=== PATIENT | male | born 1955 | race Caucasian/White ===

== ENCOUNTER → 2016-08-23 | Outpatient (CLI) | payer BC ==
[2016-08-23 14:48] LABS: ABSOLUTE EOSINOPHILS # (AUTO) 0.1 10^3/uL (0.0-0.6); ABSOLUTE LYMPHOCYTES (AUTO) 0.8 10^3/uL (0.5-4.7); ABSOLUTE MONOCYTES (AUTO) 1.3 10^3/uL (0.1-1.4); ABSOLUTE NEUT (AUTO) 11.7 10^3/uL (1.7-8.2); BASOPHILS % (AUTO) 0.3 % (0-2); EOSINOPHILS % (AUTO) 0.9 % (0-6); HEMOGLOBIN 8.4 g/dL (13.5-17.0); HGB HCT DIFFERENCE -3.8; LYMPHOCYTES % (AUTO) 5.8 % (13-45); MEAN CORPUSCULAR HEMOGLOBIN 22.5 pg (27.0-33.4); MEAN CORPUSCULAR VOLUME 78 fl (80-97); MONOCYTES % (AUTO) 9.5 % (3-13); RED BLOOD COUNT 3.73 10^6/uL (4.35-5.55); RED CELL DISTRIBUTION WIDTH 20.8 % (11.5-14.0); SEGMENTED NEUTROPHILS % (AUTO) 83.5 % (42-78)
== END ==
LOC: LAB 14:24
PROVIDERS: ATTEND Radiology Radiation Oncology
DX: C49.22 Malignant neoplasm of connective and soft tissue of left lower limb, including hip (principal)
CPT/HCPCS: 36415; 85025

== ENCOUNTER → 2016-09-18 | Outpatient (CLI) | payer BC ==
[~2016-09-18] MED LIST: CEFAZOLIN INJ 1 GM VIAL ONE; FENTANYL CITRATE INJ/PF 100 MCG/2 ML AMPUL ONE; MIDAZOLAM 2 MG/2 ML INJ ONE; PROPOFOL INJ 200 MG/20 ML VIAL IV ONE
== END ==
LOC: RAD 08:08
PROVIDERS: ATTEND Internal Medicine
DX: C49.22 Malignant neoplasm of connective and soft tissue of left lower limb, including hip (principal)
CPT/HCPCS: 71260; 74177

== ENCOUNTER 2016-09-19 10:06 | Day surgery (SDC) | payer BC ==
[~2016-09-19 10:06] MED LIST changes: +BACITRACIN INJ 50,000 UNIT VIAL MC ONE; +BACITRACIN INJ 50,000 UNIT VIAL MC PRN; -CEFAZOLIN INJ 1 GM VIAL ONE; -FENTANYL CITRATE INJ/PF 100 MCG/2 ML AMPUL ONE; -MIDAZOLAM 2 MG/2 ML INJ ONE; -PROPOFOL INJ 200 MG/20 ML VIAL IV ONE
[2016-09-19 10:48] LABS: ABSOLUTE LYMPHOCYTES (AUTO) 0.4 10^3/uL (0.5-4.7); ABSOLUTE MONOCYTES (AUTO) 0.6 10^3/uL (0.1-1.4); ABSOLUTE NEUT (AUTO) 5.6 10^3/uL (1.7-8.2); BASOPHILS % (AUTO) 0.4 % (0-2); EOSINOPHILS % (AUTO) 0.5 % (0-6); HEMATOCRIT 32.4 % (37.9-51.0); HEMOGLOBIN 9.7 g/dL (13.5-17.0); HGB HCT DIFFERENCE -3.3; LYMPHOCYTES % (AUTO) 5.9 % (13-45); MEAN CORPUSCULAR HEMOGLOBIN 23.2 pg (27.0-33.4); MEAN CORPUSCULAR HGB CONC 30.1 g/dL (32.0-36.0); MEAN CORPUSCULAR VOLUME 77 fl (80-97); MONOCYTES % (AUTO) 9.3 % (3-13); RED CELL DISTRIBUTION WIDTH 22.4 % (11.5-14.0); SEGMENTED NEUTROPHILS % (AUTO) 83.9 % (42-78); WHITE BLOOD COUNT 6.7 10^3/uL (4.0-10.5)
[2016-09-19] MEDS ORDERED: OXYCODONE-ACETAMINOPHEN 5-325 MG TABLET ONE (10:49)
[2016-09-19] MEDS ORDERED: CEFAZOLIN INJ 1 GM VIAL ONE ×2 (10:50→14:01)
[2016-09-19] MEDS ORDERED: DIAZEPAM 5 MG TABLET ONE (10:50)
[2016-09-19 11:08] LABS: ANION GAP 8 (5-19); BLOOD UREA NITROGEN 14 mg/dL (7-20); CALCIUM 8.8 mg/dL (8.4-10.2); CARBON DIOXIDE 25 mmol/L (22-30); CHLORIDE 104 mmol/L (98-107); GLUCOSE 93 mg/dL (75-110); POTASSIUM 4.7 mmol/L (3.6-5.0); SODIUM 137.4 mmol/L (137-145)
[2016-09-19] MEDS ORDERED: LIDOCAINE 0.5% INJ-PF (5 MG/ML) 50 ML SDV ONE ×2 (11:21→12:49)
[2016-09-19] MEDS ORDERED: FENTANYL CITRATE INJ/PF 100 MCG/2 ML AMPUL ONE ×2 (11:43→14:01)
[2016-09-19] MEDS ORDERED: MIDAZOLAM 2 MG/2 ML INJ ONE ×2 (11:43→14:01)
[2016-09-19] MEDS ORDERED: BUPIVACAINE HCL 0.25 % INJ/PF (2.5 MG/1 ML) 30 ML VIAL ONE (12:48)
[2016-09-19] MEDS ORDERED: BACITRACIN INJ 50,000 UNIT VIAL ONE (12:49)
[2016-09-19] MEDS ORDERED: PROPOFOL INJ 200 MG/20 ML VIAL IV ONE (14:01)
[2016-09-19] MEDS ORDERED: MORPHINE SULFATE 10 MG/ML INJ IV PRN (14:25)
[2016-09-19] MEDS ORDERED: PROMETHAZINE HCL INJ 25 MG/1 ML VIAL IV PRN ×2 (14:25)
[2016-09-19] MEDS ORDERED: FENTANYL CITRATE INJ/PF 100 MCG/2 ML AMPUL IV PRN ×3 (14:25)
[2016-09-19] MEDS ORDERED: DIPHENHYDRAMINE HCL 50 MG/ML VIAL IV PRN (14:25)
[2016-09-19] MEDS ORDERED: MEPERIDINE HCL/PF INJ 25 MG/1 ML DISP.SYRIN IV PRN (14:25)
--- NOTE | 2016-09-19 15:08 | PDOC DISCHARGE SUMMARY ---
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 #3 claustrophobia. Date of Surgery: 09/19/16 Discharge Date: 09/19/16 Condition: Fair Treatment or Instructions: #1 activities within moderation encouraged. #2 follow up in my office by appointment in about 1 week. Call for appointment. #3 the wounds covered clean and dry until office visit. #4 hold off on school/work until evaluation in office. #5 may shower in 48 hours, keep operated area as dry as possible. #6 discharge from ambulatory when ASU criteria met. #7 medications per medication reconciliation sheet. #8 Percocet by prescription.. Also may have one Percocet up to every 2 hours when necessary for pain greater than 4 out of 10 while in the ASU Prescriptions: Oxycodone HCl/Acetaminophen [Percocet 5-325 mg Tablet] 1 tab PO ASDIR PRN #15 tab PRN Reason: Discharge Diet: As Tolerated Respiratory Treatments at Home: Deep Breathing/Coughing Discharge Activity: Activity As Tolerated Report the Following to Your Physician Immediately: Shortness of Breath, Fever over 101 Degrees
--- NOTE | 2016-09-19 15:10 | Operative Report ---
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 #3 claustrophobia. 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 #3 claustrophobia. OPERATION: #1 ultrasound evaluation of right internal jugular vein. #2 insertion of Port-A-Cath via real-time access in right internal jugular vein. # 3 angiogram and interpretation. SURGEON: CELIA DRAKE LAG SCREWER: none ANESTHESIA: LMAC TISSUE REMOVED OR ALTERED: Not applicable. COMPLICATIONS: None ESTIMATED BLOOD LOSS: 10 mL. INTRAOPERATIVE FINDINGS: Of a satisfactory right internal jugular vein about 2 cm in diameter. Satisfactory to Port-A-Cath. Port-A-Cath inserted. Tip of Port-A-Cath in upper right atrium. Easy flow of contrast through the right atrium, ventricle and pulmonary outflow tract documented. Easy egress of blood and ingress of heparinized solution. PROCEDURE: After obtaining informed consent, the patient was taken to the [operating room] and positioned supine. The [right] neck and chest were prepared with chlorhexidine and draped out with sterile linen. After the " universal timeout ", in which it was verified that the patient continued to receive antibiotic, the procedure commenced. A steriley sheathed ultrasound probe was used to evaluate the [right] internal jugular vein. Local anesthesia was infiltrated adjacent to the probe. Access into the [right] internal jugular vein was obtained using a micropuncture needle, followed by micropuncture wire and then a micropuncture catheter. This was followed by introduction of a 0.035 guidewire the tip of which was placed down into the inferior vena cava . The port sites was marked , locally anesthetized and incision made. Dissection now proceeded to the deep subcutaneous subcutaneous tissues so that a pocket for the port was made. Meticulous hemostasis was secured and the catheter was tunneled between the 2 incisions. Proximally, the catheter was now positioned using a peel-away sheath. Distally the catheter was tailored to an appropriate length and then mated to the port using the contained fixating device. The port was now placed in the pocket and the catheter optimally positioned. The port was accessed with a Ortiz needle and an angiogram done under digital subtraction. The findings as dictated. With adequate and satisfactory positioning, both lumens of the chamber were irrigated with heparinized solution. The wounds were now closed using interrupted 3-0 PDS to the subcutaneous tissues and a continuous subcuticular suture of 4-0 Monocryl to the skin. These are reinforced with Steri-Strips over benzoin and then dressings applied. Copies of the dictated operative report for Dr. Celia Vu MD.
[2016-09-19 16:48] VITALS: BP 103/67
== END 2016-09-19 16:49 | disposition home or self-care (01) ==
LOC: CCL 10:06
PROVIDERS: ATTEND Surgery
PROC: 05HM33Z Insertion of Infusion Device into Right Internal Jugular Vein, Percutaneous Approach (ICD-10-PCS; principal; 2016-09-19 13:30)
DX: C49.22 Malignant neoplasm of connective and soft tissue of left lower limb, including hip (principal); C78.00 Secondary malignant neoplasm of unspecified lung; F40.240 Claustrophobia; Z87.891 Personal history of nicotine dependence; Z79.899 Other long term (current) drug therapy
CPT/HCPCS: 36415; 85025; 80048; 71010; 36561; C1752; C1788; Q9967; J2250; J3490 ×2; J0690; J3010; J2704; J1644; J1642; 532

== ENCOUNTER → 2016-09-21 | Outpatient (CLI) | payer BC ==
[~2016-09-21] MED LIST changes: -BACITRACIN INJ 50,000 UNIT VIAL MC ONE; -BACITRACIN INJ 50,000 UNIT VIAL MC PRN; +CEFAZOLIN SODIUM 1 GM in DEXTROSE 5%-WATER 50 ML IV PRN; +DEXTROSE 5%-1/2 NORMAL SALINE 1,000 ML IV PRN; +DIAZEPAM 5 MG TABLET PO PRN; +OXYCODONE-ACETAMINOPHEN 5-325 MG TABLET PO PRN
== END ==
LOC: RAD 09:22
PROVIDERS: ATTEND Internal Medicine
DX: C49.22 Malignant neoplasm of connective and soft tissue of left lower limb, including hip (principal)
CPT/HCPCS: 73720; 77001; A9576; J0690; 00532

== ENCOUNTER 2016-10-13 20:45 | Inpatient (IN) | payer BC ==
[2016-10-13] MEDS ORDERED: NORMAL SALINE 1000 ML 1,000 ML IV PRN ×2 (21:08→23:45)
[2016-10-13] MEDS ORDERED: NORMAL SALINE 250 ML IV PRN (21:09)
--- NOTE | 2016-10-13 21:10 | ER Document Report ---
ED Respiratory Problem - General Chief Complaint: Fever Stated Complaint: FEVER Time seen by provider: 21:09 Mode of Arrival: Ambulatory Information source: Patient, Relative TRAVEL OUTSIDE OF THE [place] IN LAST 30 DAYS: No - HPI Patient complains to provider of: Short of breath Onset: This evening Duration: Worse/persistent Quality of pain: Achy Short of Breath: Moderate Cough: Nonproductive Associated symptoms: Cough, Fever, Short of breath Similar symptoms previously: Yes Recently seen / treated by doctor: Yes Notes: Patient is a 61-year-old male with a history of sarcoma of the left leg, with lung and liver metastases who presents to the emergency room complaining of fever, generalized weakness and lethargy according to , patient is currently in chemotherapy regimen, has completed radiation treatment, also has a history of bilateral pneumothoraces, receiving a VATS procedure to the left lung, and a VATS and TALC procedure to the right lung, he has a history of transfusions previously, he had outpatient labs performed and was scheduled to have an outpatient blood transfusion in the morning, however noted that he seems to be lethargic, with a fever of 102 at home, on arrival patient is noted to be quite hypotensive, tachycardic and hypoxic - Related Data Allergies/Adverse Reactions: No Known Allergies Allergy (Verified 06/08/16 08:03) Past Medical History - General Information source: Patient, Relative - Social History Smoking Status: Never Smoker Chew tobacco use (# tins/day): No Frequency of alcohol use: None Drug Abuse: None Family History: Reviewed & Not Pertinent Patient has suicidal ideation: No Patient has homicidal ideation: No - Past Medical History Cardiac Medical History: Reports: Hx Pulmonary Embolism Denies: Hx Coronary Artery Disease, Hx Heart Attack, Hx Hypertension Pulmonary Medical History: Denies: Hx Asthma, Hx Bronchitis, Hx COPD, Hx Pneumonia Neurological Medical History: Denies: Hx Cerebrovascular Accident, Hx Seizures Renal/ Medical History: Denies: Hx Peritoneal Dialysis Musculoskeltal Medical History: Denies Hx Arthritis Past Surgical History: Reports: Hx Appendectomy, Other - Biopsy of sarcoma - Immunizations Hx Diphtheria, Pertussis, Tetanus Vaccination: No - UNSURE Review of Systems - Review of Systems Constitutional: Fever, Malaise, Weakness EENT: No symptoms reported Cardiovascular: No symptoms reported Respiratory: See HPI Gastrointestinal: No symptoms reported Genitourinary: No symptoms reported Male Genitourinary: No symptoms reported Musculoskeletal: No symptoms reported Skin: No symptoms reported Hematologic/Lymphatic: No symptoms reported Neurological/Psychological: See HPI -: Yes All other systems reviewed and negative Physical Exam - Vital signs Vitals: Temp Pulse Resp BP Pulse Ox 97.5 F 122 H 22 H 76/50 L 65 L 10/13/16 20:53 10/13/16 20:53 10/13/16 20:53 10/13/16 20:53 10/13/16 20:53 Interpretation: Hypotensive, Tachycardic, Hypoxic - General General appearance: Other - Ill-appearing In distress: Moderate - HEENT Head: Normocephalic, Atraumatic Eyes: Normal Conjunctiva: Normal Extraocular movements intact: Yes Eyelashes: Normal Pupils: PERRL Mucous membranes: Dry Pharynx: Normal Neck: Normal - Respiratory Respiratory status: Labored Chest status: Nontender Breath sounds: Nonproductive cough, Rhonchi Chest palpation: Normal - Cardiovascular Rhythm: Regular, Tachycardia - Abdominal Inspection: Normal Distension: No distension Bowel sounds: Normal Tenderness: Nontender Organomegaly: No organomegaly - Back Back: Normal - Extremities Thigh: Other - Dressing on left thigh - Neurological Orientation: Disoriented to events Alexander Coma Scale Eye Opening: Spontaneous All Coma Scale Verbal: Confused Alexander Coma Scale Motor: Obeys Commands All Coma Scale Total: 14 - Psychological Associated symptoms: Flat affect - Skin Skin Temperature: Warm Skin Moisture: Diaphoretic Skin Color: Pale Course - Re-evaluation Re-evalutation: 10/13/16 23:44 Patient was discussed with Dr. Calderon, on-call oncologist, notified of patient in the ED pending admission, she recommends against repeating patient CT scan today as he had a recent CT scan with the past month 10/14/16 03:43 Patient was discussed with the hospitalist who agrees to admit to the ICU for further evaluation and treatment is receiving a blood transfusion, IV fluids, and Levophed, patient requested to have the BiPAP mask taken off for a while to see how he does, it is now been off for approximately 15 minutes, his vital signs remained stable with a pulse ox of 98-100% a good respiratory rate and normal heart rate, blood pressure has improved as well - Vital Signs Vital signs: Temp Pulse Resp BP Pulse Ox 97.4 F 75 12 96/69 L 100 10/14/16 00:26 10/14/16 01:11 10/14/16 03:07 10/14/16 03:07 10/14/16 03:07 - Laboratory Result Diagrams: 10/13/16 22:16 10/13/16 22:16 Laboratory results interpreted by me: 10/13/16 10/13/16 10/13/16 22:16 22:16 22:16 WBC 2.2 L RBC 2.83 L Hgb 7.0 L Hct 22.8 L MCH 24.6 L MCHC 30.5 L RDW 22.4 H Band Neutrophils % 2 L Monocytes % (Manual) 23 H Abs Neuts (Manual) 1.2 L Glucose 130 H Total Protein 5.8 L Albumin 2.8 L Crossmatch See Detail - Diagnostic Test Radiology reviewed: Image reviewed, Reports reviewed - EKG Interpretation by Me EKG shows normal: Sinus rhythm Rate: Normal Rhythm: NSR - Transfer of Care Care transferred to following provider: Dr. Balderas Critical Care Note - Critical Care Note Total time excluding time spent on procedures (mins): 120 Comments: Patient arrived hypoxic, hypotensive and tachycardic, requiring BiPAP placement , close observation, multiple re-evaluations, discussion with family members and hospitalist for ICU admission Discharge - Discharge Clinical Impression: Acute respiratory failure with hypoxia, Neutropenic fever Anemia Qualifiers: Anemia type: unspecified type Qualified Code(s): D64.9 - Anemia, unspecified Pneumonia Qualifiers: Pneumonia type: due to unspecified organism Laterality: bilateral Lung location : lower lobe of lung Qualified Code(s): J18.9 - Pneumonia, unspecified organism Condition: Serious Disposition: ADMITTED INPATIENT Admitting Provider: Hospitalist Unit Admitted: ICU
[2016-10-13 22:38] LABS: HEMATOCRIT 22.8 % (37.9-51.0); HGB HCT DIFFERENCE -1.8; MEAN CORPUSCULAR HEMOGLOBIN 24.6 pg (27.0-33.4); MEAN CORPUSCULAR HGB CONC 30.5 g/dL (32.0-36.0); MEAN CORPUSCULAR VOLUME 81 fl (80-97); RED BLOOD COUNT 2.83 10^6/uL (4.35-5.55); RED CELL DISTRIBUTION WIDTH 22.4 % (11.5-14.0); WHITE BLOOD COUNT 2.2 10^3/uL (4.0-10.5)
[2016-10-13 22:50] LABS: ALANINE AMINOTRANSFERASE 47 U/L (21-72); ALBUMIN 2.8 g/dL (3.5-5.0); ALKALINE PHOSPHATASE 77 U/L (38-126); ANION GAP 8 (5-19); ASPARTATE AMINO TRANSFERASE 23 U/L (17-59); BILIRUBIN,TOTAL 0.4 mg/dL (0.2-1.3); BLOOD UREA NITROGEN 20 mg/dL (7-20); CALCIUM 8.5 mg/dL (8.4-10.2); CARBON DIOXIDE 28 mmol/L (22-30); CHLORIDE 101 mmol/L (98-107); CREATININE RESULT 0.81 mg/dL (0.52-1.25); GLUCOSE 130 mg/dL (75-110); POTASSIUM 4.4 mmol/L (3.6-5.0); SODIUM 137.3 mmol/L (137-145); TOTAL PROTEIN 5.8 g/dL (6.3-8.2)
[2016-10-13 22:54] LABS: BAND NEUTROPHILS % (MANUAL) 2 % (3-5); BASOPHILS % (MANUAL) 0 % (0-2); EOSINOPHILS % (MANUAL) 1 % (0-6); LYMPHOCYTES % (MANUAL) 23 % (13-45); NUCLEATED RED BLOOD CELLS 2 /100 WBC (0); TOTAL CELLS COUNTED 100
[2016-10-13 22:56] LABS: ANISOCYTOSIS 2+; HYPOCHROMASIA SLIGHT; POLYCHROMASIA SLIGHT; TEAR DROP CELLS SLIGHT; TOXIC GRANULATION SLIGHT
[2016-10-14] MEDS ORDERED: DEXTROSE 5%-WATER 250 ML with NOREPINEPHRINE BITARTRATE 4 MG IV PRN ×6 (01:26→07:59)
[2016-10-14] MEDS ORDERED: ENOXAPARIN SODIUM INJ 60 MG/0.6 ML DISP.SYRIN SUBCUT ONE (01:30)
[2016-10-14] MEDS ORDERED: NOREPINEPHRINE BITARTRATE INJ/PF 4 MG/4 ML SDV IV ONE ×2 (01:40→08:06)
[2016-10-14] MEDS ORDERED: AZITHROMYCIN INJ 500 MG VIAL IV ONE ×2 (01:50→07:15)
[2016-10-14] MEDS ORDERED: CEFTRIAXONE INJ 1000 MG VIAL IV ONE (01:50)
[2016-10-14] MEDS ORDERED: CEFEPIME 2 GM/D5W RTU 50 ML IV ONE (03:16)
[2016-10-14] MEDS ORDERED: VANCOMYCIN HCL INJ 1000 MG VIAL IV ONE (03:16)
[2016-10-14 04:12] LABS: PROTHROMBIN TIME 15.8 SEC (11.4-15.4)
[2016-10-14 04:19] LABS: ARTERIAL BLOOD O2 SATURATION 94.4 % (94-98)
[2016-10-14 07:10] LABS: ANION GAP 6 (5-19); BLOOD UREA NITROGEN 20 mg/dL (7-20); CALCIUM 8.5 mg/dL (8.4-10.2); CARBON DIOXIDE 27 mmol/L (22-30); CHLORIDE 101 mmol/L (98-107); CREATINE KINASE 43 U/L (55-170); CREATININE RESULT 0.52 mg/dL (0.52-1.25); GLUCOSE 134 mg/dL (75-110); POTASSIUM 4.7 mmol/L (3.6-5.0); SODIUM 134.3 mmol/L (137-145)
[2016-10-14 07:22] LABS: CREATINE KINASE MB 1.7 ng/mL (<4.55)
[2016-10-14 07:24] LABS: TROPONIN I 0.247 ng/mL
[2016-10-14 07:28] LABS: HEMATOCRIT 27.7 % (37.9-51.0); HEMOGLOBIN 8.9 g/dL (13.5-17.0); MEAN CORPUSCULAR HEMOGLOBIN 26.2 pg (27.0-33.4); MEAN CORPUSCULAR HGB CONC 32.2 g/dL (32.0-36.0); MEAN CORPUSCULAR VOLUME 81 fl (80-97); RED BLOOD COUNT 3.41 10^6/uL (4.35-5.55); RED CELL DISTRIBUTION WIDTH 20.4 % (11.5-14.0); WHITE BLOOD COUNT 3.7 10^3/uL (4.0-10.5)
[2016-10-14 07:33] LABS: BAND NEUTROPHILS % (MANUAL) 8 % (3-5); BASOPHILS % (MANUAL) 0 % (0-2); EOSINOPHILS % (MANUAL) 0 % (0-6); LYMPHOCYTES % (MANUAL) 20 % (13-45); TOTAL CELLS COUNTED 100
[2016-10-14 07:35] LABS: ANISOCYTOSIS 2+; HYPOCHROMASIA SLIGHT; OVALOCYTES SLIGHT; POIKILOCYTOSIS SLIGHT; POLYCHROMASIA SLIGHT; TEAR DROP CELLS SLIGHT
[2016-10-14 07:36] LABS: NUCLEATED RED BLOOD CELLS 8 /100 WBC (0)
[2016-10-14] MEDS ORDERED: IPRATROPIUM/ALBUTEROL 0.5-2.5 MG/3 ML AMPUL NEB PRN (07:51)
[2016-10-14] MEDS ORDERED: NORMAL SALINE 1000 ML 1,000 ML IV PRN (07:53)
[2016-10-14] MEDS ORDERED: PHARMACY COMMUNICATION ORDER MC NR (08:00)
[2016-10-14] MEDS ORDERED: VANCOMYCIN HCL 0 MG in DEXTROSE 5%-WATER 250 ML IV NR ×2 (08:00→08:15)
[2016-10-14] MEDS ORDERED: ACETAMINOPHEN 325 MG TABLET PO PRN (08:00)
[2016-10-14] MEDS ORDERED: NORMAL SALINE 1000 ML 2,000 ML IV ONE (08:35)
[2016-10-14] MEDS ORDERED: DIAZEPAM 5 MG TABLET PO ONE (08:42)
[2016-10-14] MEDS ORDERED: AZITHROMYCIN 500 MG in DEXTROSE 5%-WATER 250 ML IV SCH (10:00)
[2016-10-14] MEDS ORDERED: CEFEPIME 2 GM/D5W RTU 50 ML IV SCH (10:00)
--- NOTE | 2016-10-14 10:12 | PDOC H&P ---
History of Present Illness Admission Date/PCP: 10/14/16 03:[address] Sarah LAN Patient complains of: Short of breath, fever History of Present Illness: ROCK Chan DUARTE is a 61 year old male, with sarcoma of the left thigh, with lung and liver metastases, but no other chronic pulmonary or biliary disease, who presents to the emergency room for evaluation of above complaints. Patient has been discussed with emergency room physician who evaluated the patient. Patient describes fever to 102 at home, generalized weakness, lethargy, of approximately 24 hours duration. Mostly dry cough. However, no nausea vomiting , diarrhea or dysuria, chest or abdominal pain. chronic anemia, occasionally requiring blood transfusion. Was actually scheduled to have a blood transfusionthe morning of the , but with fever and lethargy, patient came to the emergency room for further evaluation. Hypoxic tachycardic and hypotensive upon initial arrival, and for some time thereafter. However, he has responded nicely to treatment so far, including IV antibiotics, IV fluid, 2 units of packed cells, and Levophed drip. Current blood pressure is acceptable, and patient is more alert and states he feels better. History of bilateral pneumothoraces, status post VATS procedure bilaterally, along with talc procedure to the right lung. Hospitalized on our service the through the of last July ; transferred to [facility] for a persistent air leak around right sided chest tube. History and physical and discharge summary have been reviewed. Prior to my being called, the emergency room physician did discuss the patient with Dr. Calderon, contract accountant oncologist. She agreed with need for transfusion, and will see the patient in follow-up in the hospital. Laboratory results are listed in [facility] and are reviewed. X-ray summary results are listed below, with full report(s) reviewed. . EKG reviewed. August 04 of last year. Social history/personal habits: . Has children. Unemployed. No tobacco use since May last year. No alcohol or illicit drug use. Allergies/adverse reactions NKDA. Home medications Home medications initially autopopulated into [facility] may not accurately reflect patient's true medications, dosages, and/or frequencies. Unfortunately, patient uncertain of medications/dosages/frequencies. REVIEW OF SYSTEMS: Constitutional: See history and present illness. Eyes: Wears glasses. ENT: No swallowing problems or complaints. No hearing problems or complaints. Pulmonary: See history and present illness. Cardiovascular: No current complaints, including chest pain. Gastrointestinal: No current complaints, including nausea or vomiting. Skin: No current complaints, including rashes. Hematologic: No unusual easy bruising or bleeding. Neurologic: No current complaints, including numbness or tingling. Musculoskeletal: Pain involving his left thigh, the site of the sarcoma. Biopsy last May. Chronic open wound since then, with dressing changed 3 times a day by . Patient states formal surgery for the lesion on his left thigh is awaiting resolution of his pulmonary issues. Joint pain from arthritis. Endocrine: No current complaints, including polyuria. Genitourinary: No current complaints, including dysuria. PHYSICAL EXAMINATION: 5 feet 6 inches tall. 59 kg. BMI 21 kg/m. Blood pressure 115/79. Pulse 74 and regular. 96% saturation on 3 L oxygen per nasal cannula. Respirations are 19 and unlabored. Temp 97 4. Thin somewhat chronically ill-appearing male, who appears a bit older than his stated age. Pleasant awake alert and cooperative. Appears to feel a bit under the weather, so to speak, along with mildly fatigued. Slightly anxious, but no florentino agitation. Skin is warm and dry. No grossly obvious evidence of rash in areas of skin examined. No subcutaneous nodules palpated, Other than the right upper anterior chest wall venous port site, which grossly appears unremarkable. ENT: Hearing grossly normal to normal conversation. Tongue midline on protrusion pink and slightly tacky. Eyes: No scleral icterus. Pupils equal and reactive to light at 4 mm. [place] conjunctivae. Neck is supple and nontender to gentle active range of motion and palpation. Midline trachea. No palpable thyroid nodule mass enlargement or tenderness. Lymphatic: No palpable cervical or clavicular nodes. Neck and lymphatic exams limited by patient body habitus. Psychiatric: Reasonable insight into acute and chronic medical issues. Oriented to time location and why here. Lungs: Auscultation reveals clear and equal breath sounds bilaterally. No use of accessory respiratory muscles. Cardiovascular: Heart regular rate and rhythm, without gallop murmur or rub. No carotid or abdominal aortic bruits. No ankle or pedal edema. Faintly palpable dorsalis pedis pulses. Abdomen: soft, , slightly distended nontender with positive bowel sounds. Unable to adequately evaluate abdomen for masses or organomegaly due to distention. Extremities: Feet are warm and dry. No calf tenderness to compression. No grossly obvious visual evidence of calf swelling. Gentle manipulation of lower extremities fails to reveal any obvious evidence of injury or instability to knees hips or ankles. Neurologic: Moves upper extremities grossly normally. Patellar reflexes absent. Absent Babinski. Light touch is intact at feet. Dorsiflexion and plantarflexion of feet 5 / 5 and symmetric. 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 from left thigh sarcoma Denies: Asthma, Bronchitis, Chronic Obstructive Pulmonary Disease (COPD), Pneumonia EENT Medical History: Denies: Eyes, Ears, Throat Neurological Medical History: Denies: Hemorrhagic CVA, Ischemic CVA, Seizures Endocrine Medical History: Denies: Diabetes Mellitus Type 1, Diabetes Mellitus Type 2, Hyperthyroidism, Hypothyroidism Renal/ Medical History: Reports: None Malignancy Medical History: 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 OF ANEMIA Infectious Medical History: Denies: Hepatitis B, Hepatitis C Past Surgical History Past Surgical History: Reports: Appendectomy, Other - Biopsy of sarcoma, left thigh Social History Information Source: Patient, Emergency Med Personnel, [facility] Records Lives with: Spouse/Significant other Smoking Status: Former Smoker Frequency of Alcohol Use: None Hx Recreational Drug Use: No Drugs: None Hx Prescription Drug Abuse: No - Advance Directive Resuscitation Status: Full Code Surrogate healthcare decision maker:: Family History Family History: Reviewed & Not Pertinent Parental Family History Reviewed: Yes Children Family History Reviewed: Yes Sibling(s) Family History Reviewed.: Yes Medication/Allergy Home Medications: RX: Alprazolam [Xanax] 1 mg PO Q12HP PRN 10/14/16 RX: Cranberry [Cranberry 500 mg Capsule] 500 mg PO DAILY 10/14/16 RX: Cyanocobalamin (Vitamin B-12) [Vitamin B-12 1000 mcg Tablet] 1,000 mcg PO DAILY 10/14/16 RX: Docusate Sodium [Colace 100 mg Capsule] 100 mg PO Q12 10/14/16 RX: Fentanyl [Subsys] 400 mcg ASDIR PRN 10/14/16 RX: Yenifer Root [Yenifer] 550 mg PO DAILY 10/14/16 RX: Linaclotide [Linzess 145 Mcg Capsule] 145 mcg PO [id number] 10/14/16 RX: Multivit-Min/FA/Lycopen/Lutein [Men 50 Plus Multivitamin Tab] 1 tab PO QHS 10/14/16 RX: Ondansetron HCl [Zofran 4 mg Tablet] 4 mg PO Q8 10/14/16 RX: Oxycodone HCl 20 mg PO Q4HP PRN 10/14/16 RX: Oxycodone HCl [Oxycontin] 80 mg PO Q8 10/14/16 RX: Quetiapine Fumarate [Seroquel 25 mg Tablet] 25 mg PO QHS 10/14/16 RX: Tamsulosin HCl [Flomax 0.4 mg Cap.sr] 0.4 mg PO QHS 10/14/16 Ipratropium/Albuterol Sulfate [Duoneb 3 ml Ampul] 3 ml NEB [id number] #1 packet Nebulizer [Nebulizer Machine] 1 each ASDIR PRN #1 kit 10/18/16 RX: Docusate Sodium [Colace 100 mg Capsule] 100 mg PO BID capsule 10/18/16 RX: Enoxaparin Sodium [Lovenox Inj 80 mg/0.8 ml Disp.syrin] 60 mg SQ Q12 #0 RX: Guaifenesin [Mucinex Sr 600 mg Tablet.sa] 1,200 mg PO Q12 #20 tablet.sa RX: Levofloxacin [Levaquin 750 mg Tablet] 750 mg PO DAILY #7 tablet 10/18/16 Allergies/Adverse Reactions: No Known Allergies Allergy (Verified 06/08/16 08:03) Physical Exam Vital Signs: Temp Pulse Resp BP Pulse Ox 97.8 F 75 17 101/71 93 10/14/16 08:17 10/14/16 01:11 10/14/16 08:01 10/14/16 08:01 10/14/16 08:01 Intake & Output 10/13/16 10/14/16 10/15/16 00:59 00:59 00:59 Intake Total 300 Output Total 300 Balance 0 Results Laboratory Results: 10/14/16 06:40 10/14/16 06:40 10/14/16 10/14/16 10/14/16 04:07 06:40 06:40 WBC 3.7 L RBC 3.41 L Hgb 8.9 L Hct 27.7 L MCV 81 MCH 26.2 L MCHC 32.2 RDW 20.4 H Plt Count 415 Seg Neutrophils % Not Reportable Lymphocytes % Not Reportable Monocytes % Not Reportable Eosinophils % Not Reportable Basophils % Not Reportable Absolute Neutrophils Not Reportable Absolute Lymphocytes Not Reportable Absolute Monocytes Not Reportable Absolute Eosinophils Not Reportable Absolute Basophils Not Reportable Carbonic Acid 1.27 HCO3/H2CO3 Ratio 20:1 ABG pH 7.40 ABG pCO2 42.3 ABG pO2 71.5 L ABG HCO3 25.9 ABG O2 Saturation 94.4 ABG Base Excess 1.0 FiO2 4L Sodium 134.3 L Potassium 4.7 Chloride 101 Carbon Dioxide 27 Anion Gap 6 BUN 20 Creatinine 0.52 Est GFR ( Amer) > 60 Est GFR (Non-Af Amer) > 60 Glucose 134 H Calcium 8.5 10/14/16 10/14/16 06:40 06:40 Creatine Kinase 43 L CK-MB (CK-2) 1.70 Troponin I 0.247 Impressions: Chest X-Ray 10/13/16 21:08 IMPRESSION: STABLE APPEARANCE OF LOCULATED BILATERAL PNEUMOTHORACES WITH ENLARGING PULMONARY NODULES AND RIGHT UPPER LOBE AIRSPACE DISEASE. OVERALL FINDINGS ARE CONCERNING FOR PROGRESSION OF METASTATIC DISEASE. SUPERIMPOSED PNEUMONIA CANNOT BE EXCLUDED. CORRELATE WITH FEVER/WHITE BLOOD CELL COUNT. Assessment & Plan - Diagnosis (1) Elevated troponin I level Is this a current diagnosis for this admission?: YesPlan: No outward clinical evidence of acute coronary syndrome. Likely due to underlying sepsis. Discussed with day hospitalist. (2) Septic shock Is this a current diagnosis for this admission?: YesPlan: Has responded well to treatment so far, including 2 units of packed cells, crystalloid, and Levophed drip. Levophed drip remains in place. (3) Pneumonia Qualifiers: Pneumonia type: due to unspecified organism Laterality: right Lung location: upper lobe of lung Qualified Code(s): J18.1 - Lobar pneumonia, unspecified organism Is this a current diagnosis for this admission?: YesPlan: Patient will be admitted under pneumonia protocol. Incentive spirometry twice a day. PRN DuoNeb's. Antibiotics will consist of cefepime, intravenous Zithromax, and intravenous vancomycin. Pharmacy to assist with dosing. I strongly encouraged patient to notify staff should patient feel that respiratory status is worsening. Patient is a full code. I have strongly encouraged patient not to get out of bed , , to avoid a fall with injury. Knee high SCDs for DVT prophylaxis; patient on systemic Lovenox for history of DVT and pulmonary embolus. Impression and plans were discussed with patient, who concurs. Time spent in evaluation and management of patient: 65 minutes. (4) Acute blood loss anemia Is this a current diagnosis for this admission?: YesPlan: Has been transfused 2 units of packed cells, as ordered by emergency room physician. (5) Anticoagulated Is this a current diagnosis for this admission?: YesPlan: Resume home medications as appropriate once these have been determined and reviewed. (6) History of DVT (deep vein thrombosis) Is this a current diagnosis for this admission?: Yes 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 Qualifiers: Laterality: unspecified laterality Qualified Code(s): C78.00 - Secondary malignant neoplasm of unspecified lung Is this a current diagnosis for this admission?: Yes (9) Sarcoma of left thigh Is this a current diagnosis for this admission?: YesPlan: Oncology consult. Dr. Calderon oncology is aware patient has been admitted and will see patient in follow-up. - Inpatient Certification Based on my medical assessment, after consideration of the patient's comorbidities, presenting symptoms, or acuity I expect that the services needed warrant INPATIENT care.: Yes I certify that my determination is in accordance with my understanding of Medicare's requirements for reasonable and necessary INPATIENT services [42 CFR 412.3e].: Yes Medical Necessity: Need Close Monitoring Due to Risk of Patient Decompensation, Need For Continuous Telemetry Monitoring, Need for IV Antibiotics, Risk of Diagnosis Which Will Require Inpatient Eval/Care/Monitoring Post Hospital Care: D/C or Transfer Summary
--- NOTE | 2016-10-14 10:54 | EKG REPORT ---
SEVERITY:- ABNORMAL ECG - SINUS RHYTHM NONSPECIFIC T ABNORMALITIES, ANT-LAT LEADS : Confirmed by: Javan Hand 14-Oct-2016 10:52:45
[2016-10-14] MEDS: GUAIFENESIN 600 MG TABLET.SA PO SCH ×2 (10:58→22:57)
[2016-10-14] MEDS: DOCUSATE SODIUM 100 MG CAPSULE PO SCH ×2 (10:58→18:38)
[2016-10-14] MEDS: FAMOTIDINE 20 MG TABLET PO SCH ×2 (10:59→22:57)
[2016-10-14] MEDS: OXYCODONE HCL SR 40 MG TABLET PO SCH ×2 (11:00→18:38)
[2016-10-14] MEDS: CEFEPIME 2 GM/D5W RTU 50 ML IV SCH ×2 (11:00→22:56)
[2016-10-14] MEDS: POLYETHYLENE GLYCOL 3350 POWDER 17 GM/1 PACKET PO SCH (11:00)
[2016-10-14] MEDS: ENOXAPARIN SODIUM INJ 60 MG/0.6 ML DISP.SYRIN SUBCUT SCH ×2 (11:00→22:57)
[2016-10-14] MEDS: NORMAL SALINE 1000 ML 1,000 ML IV PRN ×4 (11:01→22:58)
[2016-10-14] MEDS: LEVOFLOXACIN 750 MG/D5W RTU 750 MG/150 ML RTUPB IV SCH (12:19)
--- NOTE | 2016-10-14 14:05 | PDOC PROGRESS REPORT ---
Subjective Progress Note for:: 10/14/16 Subjective:: Patient does complain of constipation. Patient reports that he does not want to be admitted and would like to leave. Discussed with patient that he is currently on vasopressors with infection. Case discussed with oncology gift consultant Dr. Calderon. Patient denies chest pain, shortness of breath, abdominal pain, nausea, vomiting , fevers, chills, diarrhea, headache, new onset weakness. Physical Exam Vital Signs: Temp Pulse Resp BP Pulse Ox 97.7 F 75 14 92/67 L 94 10/14/16 12:24 10/14/16 01:11 10/14/16 13:01 10/14/16 13:01 10/14/16 13:01 Intake & Output 10/13/16 10/14/16 10/15/16 06:59 06:59 07:59 Output Total 500 Balance -500 Exam: General: Awake alert and oriented x3, no acute respiratory distress, acute and chronically ill-appearing HEENT: AT/NC, PERRL, EOMI, oropharynx is moist, pink, no scleral icterus, no conjunctival injection Neck: No JVD, trachea midline Chest: Rhonchi bilaterally CV: Regular rate and rhythm, normal S1 and S2, no murmur, rub, or gallop Abdomen: Soft, nontender to palpation, nondistended, minimal bowel sounds; no rebound, rigidity, or guarding Extremities: No cyanosis, clubbing or edema Neuro: Cranial nerves II through XII are grossly intact without focal deficits; awake alert and orientedx3 Psych: Flat mood and affect Results Laboratory Results: 10/14/16 12:42 Troponin I 0.183 Impressions: Chest X-Ray 10/13/16 21:08 IMPRESSION: STABLE APPEARANCE OF LOCULATED BILATERAL PNEUMOTHORACES WITH ENLARGING PULMONARY NODULES AND RIGHT UPPER LOBE AIRSPACE DISEASE. OVERALL FINDINGS ARE CONCERNING FOR PROGRESSION OF METASTATIC DISEASE. SUPERIMPOSED PNEUMONIA CANNOT BE EXCLUDED. CORRELATE WITH FEVER/WHITE BLOOD CELL COUNT. Chest CT 10/14/16 00:00 IMPRESSION: 1. 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 2. INTERVAL DEVELOPMENT OF BILATERAL PLEURAL EFFUSIONS, RIGHT GREATER THAN LEFT. 3. PATCHY PARENCHYMAL DENSITIES IN THE POSTERIOR RIGHT LOWER LOBE AND POSTERIOR RIGHT UPPER LOBE. PROBABLY DUE TO COMPRESSIVE ATELECTASIS SECONDARY TO PLEURAL EFFUSION ALTHOUGH SUPERIMPOSED PNEUMONIA NOT ENTIRELY EXCLUDED. 4. LOCULATED PNEUMOTHORACES, LEFT GREATER THAN RIGHT, UNCHANGED. Assessment & Plan - Diagnosis (1) Septic shock Is this a current diagnosis for this admission?: YesPlan: Secondary to pneumonia in a patient with ongoing chemotherapy. Currently on levothyroid. Will give patient adequate fluid resuscitation prior to continuing levophed. Maintain a map of 65. (2) Acute respiratory failure with hypoxia Is this a current diagnosis for this admission?: YesPlan: Continue patient on oxygen. He does have a history of prior pulmonary embolus. He is on Lovenox at this time for this. (3) Elevated troponin I level Is this a current diagnosis for this admission?: YesPlan: Likely secondary to septic shock and underlying illness. (4) Pneumonia Qualifiers: Pneumonia type: due to unspecified organism Laterality: right Lung location: upper lobe of lung Qualified Code(s): J18.1 - Lobar pneumonia, unspecified organism Is this a current diagnosis for this admission?: YesPlan: Currently on vancomycin, cefepime, and Levaquin. Pending sputum culture. Aggressive pulmonary toileting and nebulized treatments. (5) Constipation Qualifiers: Constipation type: drug induced constipation Qualified Code(s): K59.03 - Drug induced constipation Is this a current diagnosis for this admission?: YesPlan: Patient has not had a bowel movement for several days. He is only recently been started on linzess. Begin patient on senna Colace and miralax. (6) high-grade myxoid sarcoma Is this a current diagnosis for this admission?: YesPlan: Have consulted oncology for this. They felt this time that his current illness represents a progression of his disease in addition to pneumonia. 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
[2016-10-14] MEDS: IPRATROPIUM/ALBUTEROL 0.5-2.5 MG/3 ML AMPUL NEB SCH ×2 (14:27→21:20)
[2016-10-14] MEDS: VANCOMYCIN HCL 1,000 MG in DEXTROSE 5%-WATER 250 ML IV SCH (15:28)
[2016-10-14] MEDS: ALBUMIN HUMAN 50 ML IV SCH ×4 (15:28→21:26)
[2016-10-14] MEDS: OXYCODONE HCL IR 5 MG TABLET PO PRN ×2 (15:33→22:57)
[2016-10-14] MEDS ORDERED: TAMSULOSIN HCL 0.4 MG CAP.SR.24H PO SCH (22:00)
[2016-10-14] MEDS ORDERED: (PENDING PHARMACY ID) (Ondansetron Hcl [Zofran 4 Mg Tablet] 4 MG) PO SCH (22:00)
[2016-10-14] MEDS: ONDANSETRON 4 MG TAB.RAPDIS PO SCH (22:56)
[2016-10-14] MEDS: SENNOSIDES/DOCUSATE 8.6-50 MG 1 EACH TABLET PO SCH (22:57)
[2016-10-14] MEDS: QUETIAPINE FUMARATE 25 MG TABLET PO SCH (22:57)
[2016-10-14] MEDS: TAMSULOSIN HCL 0.4 MG CAP.SR.24H PO SCH (22:57)
[2016-10-15] MEDS: OXYCODONE HCL SR 40 MG TABLET PO SCH ×3 (03:40→22:24)
[2016-10-15] MEDS: VANCOMYCIN HCL 1,000 MG in DEXTROSE 5%-WATER 250 ML IV SCH ×2 (03:42→15:06)
[2016-10-15] MEDS: ONDANSETRON 4 MG TAB.RAPDIS PO SCH ×3 (05:44→22:28)
[2016-10-15] MEDS: NORMAL SALINE 1000 ML 1,000 ML IV PRN ×3 (05:48→16:57)
[2016-10-15 06:29] LABS: HEMATOCRIT 23.1 % (37.9-51.0); HGB HCT DIFFERENCE -0.9; MEAN CORPUSCULAR HEMOGLOBIN 25.9 pg (27.0-33.4); MEAN CORPUSCULAR HGB CONC 31.9 g/dL (32.0-36.0); MEAN CORPUSCULAR VOLUME 81 fl (80-97); RED BLOOD COUNT 2.85 10^6/uL (4.35-5.55); RED CELL DISTRIBUTION WIDTH 20.3 % (11.5-14.0)
[2016-10-15 06:30] LABS: ALANINE AMINOTRANSFERASE 37 U/L (21-72); ALBUMIN 2.4 g/dL (3.5-5.0); ALKALINE PHOSPHATASE 62 U/L (38-126); ANION GAP 6 (5-19); ASPARTATE AMINO TRANSFERASE 16 U/L (17-59); BILIRUBIN,TOTAL 0.5 mg/dL (0.2-1.3); BLOOD UREA NITROGEN 8 mg/dL (7-20); CARBON DIOXIDE 25 mmol/L (22-30); CHLORIDE 108 mmol/L (98-107); CREATININE RESULT 0.38 mg/dL (0.52-1.25); GLUCOSE 84 mg/dL (75-110); SODIUM 138.5 mmol/L (137-145); TOTAL PROTEIN 4.9 g/dL (6.3-8.2)
[2016-10-15 06:51] LABS: POTASSIUM 3.6 mmol/L (3.6-5.0)
[2016-10-15 06:52] LABS: WHITE BLOOD COUNT 2.1 10^3/uL (4.0-10.5)
[2016-10-15 06:54] LABS: HEMOGLOBIN 7.4 g/dL (13.5-17.0)
[2016-10-15] MEDS ORDERED: NORMAL SALINE 250 ML IV PRN ×4 (07:31→10:15)
[2016-10-15] MEDS: OXYCODONE HCL IR 5 MG TABLET PO PRN ×3 (08:36→22:37)
[2016-10-15] MEDS: IPRATROPIUM/ALBUTEROL 0.5-2.5 MG/3 ML AMPUL NEB SCH ×3 (08:37→20:54)
[2016-10-15] MEDS: POLYETHYLENE GLYCOL 3350 POWDER 17 GM/1 PACKET PO SCH (10:01)
[2016-10-15] MEDS: GUAIFENESIN 600 MG TABLET.SA PO SCH ×2 (10:01→22:27)
[2016-10-15] MEDS: DOCUSATE SODIUM 100 MG CAPSULE PO SCH ×2 (10:02→17:53)
[2016-10-15] MEDS: CYANOCOBALAMIN (VITAMIN B-12) 1,000 MCG TABLET PO SCH (10:02)
[2016-10-15] MEDS: FAMOTIDINE 20 MG TABLET PO SCH ×2 (10:02→22:27)
[2016-10-15] MEDS: ENOXAPARIN SODIUM INJ 60 MG/0.6 ML DISP.SYRIN SUBCUT SCH ×2 (10:03→22:24)
[2016-10-15] MEDS: ALPRAZOLAM 0.5 MG TABLET PO PRN ×2 (10:07→22:37)
[2016-10-15] MEDS ORDERED: FUROSEMIDE INJ/PF 20 MG/2 ML SDV IV ONE (10:51)
[2016-10-15] MEDS ORDERED: MINERAL OIL ENEMA 133 ML PR PRN (10:53)
[2016-10-15] MEDS ORDERED: POTASSIUM CHLORIDE 10 MEQ TABLET.SA PO ONE (11:00)
[2016-10-15] MEDS: CEFEPIME HCL 2 GM in DEXTROSE 5%-WATER 50 ML IV SCH ×2 (11:44→22:37)
[2016-10-15] MEDS: LEVOFLOXACIN 750 MG/D5W RTU 750 MG/150 ML RTUPB IV SCH (12:18)
--- NOTE | 2016-10-15 14:35 | PDOC CONSULTATION ---
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 He initially presented with LLE mass and was treated with XRT complete 07/25/16 with remarkable reduction in his mass. He unfortutely had bilateral pneumothorace and underwent VATS at [facility] and was discovered to have pulmonary mets. Dr. Smith discussed his case with Dr. Oneill at [place] who recommended Adriamycin with Lartruvo which he began without the immune therapy as they are awaiting drug assistance. He then presented to the ER with a fever, worsening CXR and hypotension, anemia. He has been transfused as we had already scheduled and started on IV ABX with Levophed being tapered. The patient is wanting to go home at present time. 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 from left thigh sarcoma Denies: Asthma, Bronchitis, Chronic Obstructive Pulmonary Disease (COPD), Pneumonia EENT Medical History: Denies: Eyes, Ears, Throat Neurological Medical History: Denies: Hemorrhagic CVA, Ischemic CVA, Seizures Endocrine Medical History: Denies: Diabetes Mellitus Type 1, Diabetes Mellitus Type 2, Hyperthyroidism, Hypothyroidism Renal/ Medical History: Reports: None Malignancy Medical History: 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 OF ANEMIA Infectious Medical History: Denies: Hepatitis B, Hepatitis C Past Surgical History Past Surgical History: Reports: Appendectomy, Other - Biopsy of sarcoma, left thigh Social History Lives with: Spouse/Significant other Smoking Status: Former Smoker Frequency of Alcohol Use: None Hx Recreational Drug Use: No Drugs: None Hx Prescription Drug Abuse: No - Advance Directive Resuscitation Status: Full Code Family History Family History: Reviewed & Not Pertinent Parental Family History Reviewed: Yes Children Family History Reviewed: Yes Sibling(s) Family History Reviewed.: Yes Medication/Allergy Home Medications: Alprazolam [Xanax] 1 mg PO Q12HP PRN 10/14/16 Cranberry [Cranberry 500 mg Capsule] 500 mg PO DAILY 10/14/16 Cyanocobalamin (Vitamin B-12) [Vitamin B-12 1000 mcg Tablet] 1,000 mcg PO DAILY 10/14/16 Docusate Sodium [Colace 100 mg Capsule] 100 mg PO Q12 10/14/16 Enoxaparin Sodium [Lovenox Inj 80 mg/0.8 ml Disp.syrin] 80 mg SQ Q12 10/14/16 Fentanyl [Subsys] 400 mcg SL ASDIR PRN 10/14/16 Yenifer Root [Yenifer] 550 mg PO DAILY 10/14/16 Linaclotide [Linzess 145 Mcg Capsule] 145 mcg PO ACBRKFST 10/14/16 Multivit-Min/FA/Lycopen/Lutein [Men 50 Plus Multivitamin Tab] 1 tab PO QHS 10/14 Ondansetron HCl [Zofran 4 mg Tablet] 4 mg PO Q8 10/14/16 Oxycodone HCl 20 mg PO Q4HP PRN 10/14/16 Oxycodone HCl [Oxycontin] 80 mg PO Q8 10/14/16 Quetiapine Fumarate [Seroquel 25 mg Tablet] 25 mg PO QHS 10/14/16 Tamsulosin HCl [Flomax 0.4 mg Cap.sr] 0.4 mg PO QHS 10/14/16 Allergies/Adverse Reactions: No Known Allergies Allergy (Verified 06/08/16 08:03) Review of Systems Constitutional: PRESENT: weakness Respiratory: PRESENT: dyspnea Hematologic/Lymphatic: PRESENT: as per HPI Physical Exam Vital Signs: Temp Pulse Resp BP Pulse Ox 97.5 F 75 15 95/65 L 93 10/14/16 18:43 10/14/16 21:20 10/14/16 23:16 10/14/16 23:16 10/14/16 23:01 Intake & Output 10/13/16 10/14/16 10/15/16 06:59 06:59 07:59 Output Total 1200 Balance -1200 General appearance: PRESENT: other - Chronically ill appearing Head exam: PRESENT: atraumatic, normocephalic Eye exam: PRESENT: EOMI, PERRLA Ear exam: PRESENT: normal external ear exam Mouth exam: PRESENT: moist, tongue midline Neck exam: PRESENT: full ROM Respiratory exam: PRESENT: decreased breath sounds, rhonchi, other - at the bases Cardiovascular exam: PRESENT: tachycardia Extremities exam: PRESENT: other - LLE with soft tissue changes in the left thigh Neurological exam: PRESENT: alert, awake, oriented to person, oriented to place , oriented to time, oriented to situation, abnormal gait, CN II-XII grossly intact Psychiatric exam: PRESENT: agitated Results Laboratory Results: 10/14/16 10/14/16 12:42 19:01 Troponin I 0.183 0.114 Impressions: Chest X-Ray 10/13/16 21:08 IMPRESSION: STABLE APPEARANCE OF LOCULATED BILATERAL PNEUMOTHORACES WITH ENLARGING PULMONARY NODULES AND RIGHT UPPER LOBE AIRSPACE DISEASE. OVERALL FINDINGS ARE CONCERNING FOR PROGRESSION OF METASTATIC DISEASE. SUPERIMPOSED PNEUMONIA CANNOT BE EXCLUDED. CORRELATE WITH FEVER/WHITE BLOOD CELL COUNT. Chest CT 10/14/16 00:00 IMPRESSION: 1. 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 2. INTERVAL DEVELOPMENT OF BILATERAL PLEURAL EFFUSIONS, RIGHT GREATER THAN LEFT. 3. PATCHY PARENCHYMAL DENSITIES IN THE POSTERIOR RIGHT LOWER LOBE AND POSTERIOR RIGHT UPPER LOBE. PROBABLY DUE TO COMPRESSIVE ATELECTASIS SECONDARY TO PLEURAL EFFUSION ALTHOUGH SUPERIMPOSED PNEUMONIA NOT ENTIRELY EXCLUDED. 4. LOCULATED PNEUMOTHORACES, LEFT GREATER THAN RIGHT, UNCHANGED. Assessment & Plan - Diagnosis (1) Neutropenic fever Plan: WBC's are better but can support with growth factors as needed (2) Pneumonia Qualifiers: Pneumonia type: due to unspecified organism Laterality: right Lung location: upper lobe of lung Qualified Code(s): J18.1 - Lobar pneumonia, unspecified organism Is this a current diagnosis for this admission?: YesPlan: BSA with follow up CT to clarify mets vs PNA or both (3) Acute pain of left lower extremity Is this a current diagnosis for this admission?: YesPlan: Resume pain control (4) Hypotension Is this a current diagnosis for this admission?: YesPlan: Secondary to anemia and possible sepsis (5) high-grade myxoid sarcoma Is this a current diagnosis for this admission?: Yes (6) Anemia Qualifiers: Anemia type: unspecified type Qualified Code(s): D64.9 - Anemia, unspecified Is this a current diagnosis for this admission?: YesPlan: Transfuse blood - Time Time Spent: Greater than 70 Minutes Critical Time spent with patient: 25-34 minutes Medications reviewed and adjusted accordingly: Yes - Inpatient Certification Medical Necessity: Need for IV Antibiotics
[2016-10-15 17:22] LABS: HEMATOCRIT 29.1 % (37.9-51.0); HGB HCT DIFFERENCE -0.3; MEAN CORPUSCULAR HEMOGLOBIN 26.8 pg (27.0-33.4); MEAN CORPUSCULAR HGB CONC 32.9 g/dL (32.0-36.0); MEAN CORPUSCULAR VOLUME 82 fl (80-97); RED BLOOD COUNT 3.58 10^6/uL (4.35-5.55); RED CELL DISTRIBUTION WIDTH 19.3 % (11.5-14.0); WHITE BLOOD COUNT 2.8 10^3/uL (4.0-10.5)
[2016-10-15 17:33] LABS: PROTHROMBIN TIME 15.6 SEC (11.4-15.4)
[2016-10-15 17:34] LABS: FIBRINOGEN 380 mg/dL (209-497); MAGNESIUM 1.6 mg/dL (1.6-2.3); PARTIAL THROMBOPLASTIN TIME 45.3 SEC (23.5-35.8)
[2016-10-15 17:43] LABS: BAND NEUTROPHILS % (MANUAL) 3 % (3-5); BASOPHILS % (MANUAL) 0 % (0-2); EOSINOPHILS % (MANUAL) 0 % (0-6); LYMPHOCYTES % (MANUAL) 10 % (13-45); NUCLEATED RED BLOOD CELLS 4 /100 WBC (0); TOTAL CELLS COUNTED 100
[2016-10-15 17:45] LABS: ANISOCYTOSIS 2+; HYPOCHROMASIA 1+; OVALOCYTES SLIGHT; PLATELET CLUMPS PRESENT; POIKILOCYTOSIS 1+; TEAR DROP CELLS SLIGHT
[2016-10-15 17:47] LABS: HEMOGLOBIN 9.6 g/dL (13.5-17.0)
[2016-10-15] MEDS: TAMSULOSIN HCL 0.4 MG CAP.SR.24H PO SCH (22:26)
[2016-10-15] MEDS: SENNOSIDES/DOCUSATE 8.6-50 MG 1 EACH TABLET PO SCH (22:26)
[2016-10-15] MEDS: QUETIAPINE FUMARATE 25 MG TABLET PO SCH (22:27)
[2016-10-16 03:18] LABS: ALANINE AMINOTRANSFERASE 39 U/L (21-72); ALBUMIN 2.2 g/dL (3.5-5.0); ALKALINE PHOSPHATASE 61 U/L (38-126); ANION GAP 6 (5-19); ASPARTATE AMINO TRANSFERASE 15 U/L (17-59); BILIRUBIN,TOTAL 0.5 mg/dL (0.2-1.3); BLOOD UREA NITROGEN 4 mg/dL (7-20); CALCIUM 7.9 mg/dL (8.4-10.2); CARBON DIOXIDE 23 mmol/L (22-30); CHLORIDE 111 mmol/L (98-107); CREATININE RESULT 0.42 mg/dL (0.52-1.25); GLUCOSE 86 mg/dL (75-110); POTASSIUM 3.5 mmol/L (3.6-5.0); SODIUM 140.1 mmol/L (137-145); TOTAL PROTEIN 4.5 g/dL (6.3-8.2)
[2016-10-16 03:32] LABS: HEMATOCRIT 28.5 % (37.9-51.0); HEMOGLOBIN 9.2 g/dL (13.5-17.0); HGB HCT DIFFERENCE -0.9; MEAN CORPUSCULAR HEMOGLOBIN 26.2 pg (27.0-33.4); MEAN CORPUSCULAR HGB CONC 32.3 g/dL (32.0-36.0); MEAN CORPUSCULAR VOLUME 81 fl (80-97); RED BLOOD COUNT 3.51 10^6/uL (4.35-5.55); RED CELL DISTRIBUTION WIDTH 19.7 % (11.5-14.0); WHITE BLOOD COUNT 2.9 10^3/uL (4.0-10.5)
[2016-10-16 03:41] LABS: BASOPHILS % (MANUAL) 1 % (0-2); EOSINOPHILS % (MANUAL) 0 % (0-6); LYMPHOCYTES % (MANUAL) 13 % (13-45); TOTAL CELLS COUNTED 100
[2016-10-16 03:42] LABS: NUCLEATED RED BLOOD CELLS 5 /100 WBC (0)
[2016-10-16 04:11] LABS: ANISOCYTOSIS 2+; BURR CELLS SLIGHT; POIKILOCYTOSIS 2+; POLYCHROMASIA SLIGHT; TOXIC GRANULATION 1+
[2016-10-16 04:12] LABS: OVALOCYTES 1+; TEAR DROP CELLS 1+
[2016-10-16 04:27] LABS: FOLATE > 20.00 ng/mL (>2.76)
[2016-10-16] MEDS: NORMAL SALINE 1000 ML 1,000 ML IV PRN (06:16)
[2016-10-16] MEDS: VANCOMYCIN HCL 1,000 MG in DEXTROSE 5%-WATER 250 ML IV SCH (06:16)
[2016-10-16] MEDS: ONDANSETRON 4 MG TAB.RAPDIS PO SCH ×3 (06:18→22:20)
[2016-10-16] MEDS: OXYCODONE HCL SR 40 MG TABLET PO SCH ×3 (06:18→22:19)
[2016-10-16] MEDS: OXYCODONE HCL IR 5 MG TABLET PO PRN ×2 (08:37→17:55)
[2016-10-16] MEDS: IPRATROPIUM/ALBUTEROL 0.5-2.5 MG/3 ML AMPUL NEB SCH ×3 (08:41→20:25)
[2016-10-16] MEDS ORDERED: POTASSIUM CHLORIDE 10 MEQ TABLET.SA PO ONE (09:30)
[2016-10-16] MEDS ORDERED: FUROSEMIDE INJ/PF 20 MG/2 ML SDV IV SCH (10:00)
[2016-10-16] MEDS ORDERED: FILGRASTIM INJ 300 MCG/1 ML VIAL SUBCUT SCH (10:00)
[2016-10-16] MEDS: POLYETHYLENE GLYCOL 3350 POWDER 17 GM/1 PACKET PO SCH (10:58)
[2016-10-16] MEDS: CEFEPIME HCL 2 GM in DEXTROSE 5%-WATER 50 ML IV SCH ×2 (10:58→22:26)
[2016-10-16] MEDS: ALPRAZOLAM 0.5 MG TABLET PO PRN (10:59)
[2016-10-16] MEDS: GUAIFENESIN 600 MG TABLET.SA PO SCH ×2 (10:59→22:18)
[2016-10-16] MEDS: FAMOTIDINE 20 MG TABLET PO SCH ×2 (10:59→22:19)
[2016-10-16] MEDS: DOCUSATE SODIUM 100 MG CAPSULE PO SCH ×2 (10:59→17:55)
[2016-10-16] MEDS: ENOXAPARIN SODIUM INJ 60 MG/0.6 ML DISP.SYRIN SUBCUT SCH ×2 (11:00→22:22)
[2016-10-16] MEDS: CYANOCOBALAMIN (VITAMIN B-12) 1,000 MCG TABLET PO SCH (11:03)
[2016-10-16] MEDS: LEVOFLOXACIN 750 MG/D5W RTU 750 MG/150 ML RTUPB IV SCH (11:04)
[2016-10-16] MEDS ORDERED: VANCOMYCIN HCL 1,000 MG in DEXTROSE 5%-WATER 250 ML IV SCH (14:00)
[2016-10-16] MEDS ORDERED: FERUMOXYTOL 510 MG in NORMAL SALINE 100 ML IV ONE (14:00)
--- NOTE | 2016-10-16 16:47 | PDOC PROGRESS REPORT ---
Subjective Progress Note for:: 10/15/16 Subjective:: Patient admits to shortness of breath. Patient's hemoglobin was back down to 7.4 today. He denies any hematemesis, hematochezia, or melena. He reports his breathing is much improved. He reports his pain is is well- controlled as he can expect to be. Patient denies chest pain, abdominal pain, nausea, vomiting, fevers, chills, diarrhea, constipation, headache, new onset weakness. Physical Exam Vital Signs: Temp Pulse Resp BP Pulse Ox 97.9 F 87 22 H 99/65 L 91 L 10/15/16 08:00 10/15/16 10:00 10/15/16 10:00 10/15/16 10:00 10/15/16 10:00 Intake & Output 10/14/16 10/15/16 10/16/16 05:59 06:59 06:59 Intake Total 0 Output Total 200 Balance -200 Weight Exam: General: Awake alert and oriented x3, no acute respiratory distress, acute and chronically ill-appearing HEENT: AT/NC, PERRL, EOMI, oropharynx is moist, pink, no scleral icterus, no conjunctival injection Neck: No JVD, trachea midline Chest: Rhonchi bilaterally, bilateral rales CV: Regular rate and rhythm, normal S1 and S2, no murmur, rub, or gallop Abdomen: Soft, nontender to palpation, nondistended, minimal bowel sounds; no rebound, rigidity, or guarding Extremities: No cyanosis, clubbing or edema Neuro: Cranial nerves II through XII are grossly intact without focal deficits; awake alert and orientedx3 Psych: Flat mood and affect Results Laboratory Results: 10/15/16 06:00 10/15/16 06:00 10/15/16 10/15/16 06:00 06:00 WBC 2.1 L D RBC 2.85 L Hgb 7.4 L Hct 23.1 L MCV 81 MCH 25.9 L MCHC 31.9 L RDW 20.3 H Plt Count 322 Sodium 138.5 Potassium 3.6 D Chloride 108 H Carbon Dioxide 25 Anion Gap 6 BUN 8 Creatinine 0.38 L Est GFR ( Amer) > 60 Est GFR (Non-Af Amer) > 60 Glucose 84 Calcium 8.0 L Total Bilirubin 0.5 AST 16 L ALT 37 Alkaline Phosphatase 62 Total Protein 4.9 L Albumin 2.4 L 10/14/16 10/14/16 10/15/16 12:42 19:01 00:36 Troponin I 0.183 0.114 0.116 Impressions: Chest X-Ray 10/13/16 21:08 IMPRESSION: STABLE APPEARANCE OF LOCULATED BILATERAL PNEUMOTHORACES WITH ENLARGING PULMONARY NODULES AND RIGHT UPPER LOBE AIRSPACE DISEASE. OVERALL FINDINGS ARE CONCERNING FOR PROGRESSION OF METASTATIC DISEASE. SUPERIMPOSED PNEUMONIA CANNOT BE EXCLUDED. CORRELATE WITH FEVER/WHITE BLOOD CELL COUNT. Chest CT 10/14/16 00:00 IMPRESSION: 1. 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 2. INTERVAL DEVELOPMENT OF BILATERAL PLEURAL EFFUSIONS, RIGHT GREATER THAN LEFT. 3. PATCHY PARENCHYMAL DENSITIES IN THE POSTERIOR RIGHT LOWER LOBE AND POSTERIOR RIGHT UPPER LOBE. PROBABLY DUE TO COMPRESSIVE ATELECTASIS SECONDARY TO PLEURAL EFFUSION ALTHOUGH SUPERIMPOSED PNEUMONIA NOT ENTIRELY EXCLUDED. 4. LOCULATED PNEUMOTHORACES, LEFT GREATER THAN RIGHT, UNCHANGED. Assessment & Plan - Diagnosis (1) Septic shock Is this a current diagnosis for this admission?: YesPlan: Secondary to pneumonia in a patient with ongoing chemotherapy. Patient currently off pressors. Maintain a map of 65. (2) Acute respiratory failure with hypoxia Is this a current diagnosis for this admission?: YesPlan: Continue patient on oxygen. He does have a history of prior pulmonary embolus. He is on Lovenox at this time for this. (3) Elevated troponin I level Is this a current diagnosis for this admission?: YesPlan: Likely secondary to septic shock and underlying illness. (4) Pneumonia Qualifiers: Pneumonia type: due to unspecified organism Laterality: right Lung location: upper lobe of lung Qualified Code(s): J18.1 - Lobar pneumonia, unspecified organism Is this a current diagnosis for this admission?: YesPlan: Currently on vancomycin, cefepime, and Levaquin. Pending sputum culture. Aggressive pulmonary toileting and nebulized treatments. (5) Constipation Qualifiers: Constipation type: drug induced constipation Qualified Code(s): K59.03 - Drug induced constipation Is this a current diagnosis for this admission?: YesPlan: We'll continue cathartics. Patient has significant stool burden. (6) high-grade myxoid sarcoma Is this a current diagnosis for this admission?: YesPlan: Appreciate oncology input on this case. Have discussed this case with Dr. Calderon of oncology. At this time feel that his current illness represents a progression of his disease in addition to pneumonia. 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 Qualifiers: Laterality: unspecified laterality Qualified Code(s): C78.00 - Secondary malignant neoplasm of unspecified lung Is this a current diagnosis for this admission?: Yes (9) Continuous tobacco abuse Is this a current diagnosis for this admission?: YesPlan: Nicotine patch if needed (10) DVT prophylaxis Is this a current diagnosis for this admission?: YesPlan: On full dose Lovenox (11) Full code status Is this a current diagnosis for this admission?: Yes (12) Anemia Qualifiers: Anemia type: iron deficiency Iron deficiency anemia type: chronic blood loss Qualified Code(s): D50.0 - Iron deficiency anemia secondary to blood loss (chronic) Is this a current diagnosis for this admission?: YesPlan: Will transfuse patient 2 units of packed red blood cells today. 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 (13) Pulmonary embolus, right Is this a current diagnosis for this admission?: YesPlan: On full dose Lovenox - Time Time Spent with patient: 25-34 minutes Medications reviewed and adjusted accordingly: Yes Anticipated discharge: Home with Homehealth Within: within 48 hours
--- NOTE | 2016-10-16 16:52 | PDOC PROGRESS REPORT ---
Subjective Progress Note for:: 10/16/16 Subjective:: Patient reports he had a bowel movement overnight. He reports there was some blood on the outside of this. But denies any overt hematochezia, hematemesis, or melena. Patient denies chest pain, shortness of breath, abdominal pain, nausea, vomiting , fevers, chills, diarrhea, constipation, headache, new onset weakness. Physical Exam Vital Signs: Temp Pulse Resp BP Pulse Ox 97.7 F 72 16 113/79 93 10/16/16 08:18 10/16/16 08:18 10/16/16 08:18 10/16/16 08:18 10/16/16 08:18 Intake & Output 10/15/16 10/16/16 10/17/16 06:59 06:59 06:59 Intake Total 5499 Output Total 4620 Balance 879 Weight 68.2 kg Exam: General: Awake alert and oriented x3, no acute respiratory distress, acute and chronically ill-appearing HEENT: AT/NC, PERRL, EOMI, oropharynx is moist, pink, no scleral icterus, no conjunctival injection Neck: No JVD, trachea midline Chest: Rhonchi bilaterally CV: Regular rate and rhythm, normal S1 and S2, no murmur, rub, or gallop Abdomen: Soft, nontender to palpation, nondistended, minimal bowel sounds; no rebound, rigidity, or guarding Extremities: No cyanosis, clubbing; 2+edema Neuro: Cranial nerves II through XII are grossly intact without focal deficits; awake alert and orientedx3 Psych: Flat mood and affect Results Laboratory Results: 10/16/16 02:55 10/16/16 02:55 10/15/16 10/15/16 10/16/16 17:05 17:05 02:55 WBC 2.8 L 2.9 L RBC 3.58 L 3.51 L Hgb 9.6 L D 9.2 L Hct 29.1 L 28.5 L MCV 82 81 MCH 26.8 L 26.2 L MCHC 32.9 32.3 RDW 19.3 H 19.7 H Plt Count 343 360 Seg Neutrophils % Not Reportable Not Reportable Lymphocytes % Not Reportable Not Reportable Monocytes % Not Reportable Not Reportable Eosinophils % Not Reportable Not Reportable Basophils % Not Reportable Not Reportable Absolute Neutrophils Not Reportable Not Reportable Absolute Lymphocytes Not Reportable Not Reportable Absolute Monocytes Not Reportable Not Reportable Absolute Eosinophils Not Reportable Not Reportable Absolute Basophils Not Reportable Not Reportable Retic Count (auto) 2.76 Absolute Retic 0.097 Sodium Potassium Chloride Carbon Dioxide Anion Gap BUN Creatinine Est GFR ( Amer) Est GFR (Non-Af Amer) Glucose Calcium Magnesium 1.6 Iron TIBC % Saturation Ferritin Total Bilirubin AST ALT Alkaline Phosphatase Total Protein Albumin Vitamin B12 Folate 10/16/16 02:55 WBC RBC Hgb Hct MCV MCH MCHC RDW Plt Count Seg Neutrophils % Lymphocytes % Monocytes % Eosinophils % Basophils % Absolute Neutrophils Absolute Lymphocytes Absolute Monocytes Absolute Eosinophils Absolute Basophils Retic Count (auto) Absolute Retic Sodium 140.1 Potassium 3.5 L Chloride 111 H Carbon Dioxide 23 Anion Gap 6 BUN 4 L Creatinine 0.42 L Est GFR ( Amer) > 60 Est GFR (Non-Af Amer) > 60 Glucose 86 Calcium 7.9 L Magnesium Iron 19.8 L TIBC 188 L % Saturation 11 Ferritin 148.00 Total Bilirubin 0.5 AST 15 L ALT 39 Alkaline Phosphatase 61 Total Protein 4.5 L Albumin 2.2 L Vitamin B12 330.0 Folate > 20.00 10/14/16 10/14/16 10/15/16 12:42 19:01 00:36 Troponin I 0.183 0.114 0.116 Impressions: Chest X-Ray 10/13/16 21:08 IMPRESSION: STABLE APPEARANCE OF LOCULATED BILATERAL PNEUMOTHORACES WITH ENLARGING PULMONARY NODULES AND RIGHT UPPER LOBE AIRSPACE DISEASE. OVERALL FINDINGS ARE CONCERNING FOR PROGRESSION OF METASTATIC DISEASE. SUPERIMPOSED PNEUMONIA CANNOT BE EXCLUDED. CORRELATE WITH FEVER/WHITE BLOOD CELL COUNT. Chest CT 10/14/16 00:00 IMPRESSION: 1. 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 2. INTERVAL DEVELOPMENT OF BILATERAL PLEURAL EFFUSIONS, RIGHT GREATER THAN LEFT. 3. PATCHY PARENCHYMAL DENSITIES IN THE POSTERIOR RIGHT LOWER LOBE AND POSTERIOR RIGHT UPPER LOBE. PROBABLY DUE TO COMPRESSIVE ATELECTASIS SECONDARY TO PLEURAL EFFUSION ALTHOUGH SUPERIMPOSED PNEUMONIA NOT ENTIRELY EXCLUDED. 4. LOCULATED PNEUMOTHORACES, LEFT GREATER THAN RIGHT, UNCHANGED. Assessment & Plan - Diagnosis (1) Septic shock Is this a current diagnosis for this admission?: YesPlan: Secondary to pneumonia in a patient with ongoing chemotherapy. Patient currently off pressors. Maintain a map of 65. (2) Acute respiratory failure with hypoxia Is this a current diagnosis for this admission?: YesPlan: Continue patient on oxygen. He does have a history of prior pulmonary embolus. He is on Lovenox at this time for this. (3) Elevated troponin I level Is this a current diagnosis for this admission?: YesPlan: Likely secondary to septic shock and myocardial demand. (4) Pneumonia Qualifiers: Pneumonia type: due to unspecified organism Laterality: right Lung location: upper lobe of lung Qualified Code(s): J18.1 - Lobar pneumonia, unspecified organism Is this a current diagnosis for this admission?: YesPlan: Currently on vancomycin, cefepime, and Levaquin. Pending sputum culture. Aggressive pulmonary toileting and nebulized treatments. Will discontinue vancomycin. Sputum currently reports normal aldair with Josselin. Begin tapering antibiotics to acceptable oral. Suspect atypical pneumonia given patient's recent chemotherapy. (5) Constipation Qualifiers: Constipation type: drug induced constipation Qualified Code(s): K59.03 - Drug induced constipation Is this a current diagnosis for this admission?: YesPlan: Resolved. Place on scheduled Colace and senna. (6) high-grade myxoid sarcoma Is this a current diagnosis for this admission?: YesPlan: Appreciate oncology input on this case. Have discussed this case with Dr. Calderon of oncology. At this time feel that his current illness represents a progression of his disease in addition to pneumonia. Patient is a potential candidate for experimental chemotherapy. 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 Qualifiers: Laterality: unspecified laterality Qualified Code(s): C78.00 - Secondary malignant neoplasm of unspecified lung Is this a current diagnosis for this admission?: Yes (9) Continuous tobacco abuse Is this a current diagnosis for this admission?: Yes (10) DVT prophylaxis Is this a current diagnosis for this admission?: Yes (11) Full code status Is this a current diagnosis for this admission?: Yes (12) Anemia Qualifiers: Anemia type: iron deficiency Iron deficiency anemia type: chronic blood loss Qualified Code(s): D50.0 - Iron deficiency anemia secondary to blood loss (chronic) Is this a current diagnosis for this admission?: YesPlan: Hemoglobin currently stable. Conchis monitor H&H. 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 (13) Pneumothorax on left Is this a current diagnosis for this admission?: YesPlan: This is chronic and stable. Patient has bilateral loculated pneumothoraces. (14) Pulmonary embolus, right Is this a current diagnosis for this admission?: YesPlan: On full dose Lovenox - Time Time Spent with patient: 25-34 minutes Medications reviewed and adjusted accordingly: Yes Anticipated discharge: Home with Homehealth Within: within 48 hours, within 72 hours
[2016-10-16] MEDS ORDERED: FUROSEMIDE INJ/PF 20 MG/2 ML SDV IV ONE (17:00)
--- NOTE | 2016-10-16 17:17 | PDOC PROGRESS REPORT ---
Subjective Progress Note for:: 10/16/16 Subjective:: Up in the chair and feeling better Physical Exam Vital Signs: Temp Pulse Resp BP Pulse Ox 98.9 F 88 22 H 120/84 89 L 10/16/16 16:00 10/16/16 16:00 10/16/16 16:00 10/16/16 16:07 10/16/16 16:00 Intake & Output 10/15/16 10/16/16 10/17/16 06:59 06:59 06:59 Intake Total 5499 Output Total 4646 1120 Balance 879 -1120 Weight 68.2 kg General appearance: PRESENT: no acute distress Head exam: PRESENT: normocephalic Eye exam: PRESENT: EOMI, PERRLA Ear exam: PRESENT: normal external ear exam Mouth exam: PRESENT: tongue midline Respiratory exam: PRESENT: decreased breath sounds, other - Better breath sounds GI/Abdominal exam: PRESENT: normal bowel sounds, soft Neurological exam: PRESENT: alert, awake, oriented to person, oriented to place , oriented to time, oriented to situation, CN II-XII grossly intact Results Laboratory Results: 10/16/16 02:55 10/16/16 02:55 10/15/16 10/15/16 10/16/16 17:05 17:05 02:55 WBC 2.8 L 2.9 L RBC 3.58 L 3.51 L Hgb 9.6 L D 9.2 L Hct 29.1 L 28.5 L MCV 82 81 MCH 26.8 L 26.2 L MCHC 32.9 32.3 RDW 19.3 H 19.7 H Plt Count 343 360 Seg Neutrophils % Not Reportable Not Reportable Lymphocytes % Not Reportable Not Reportable Monocytes % Not Reportable Not Reportable Eosinophils % Not Reportable Not Reportable Basophils % Not Reportable Not Reportable Absolute Neutrophils Not Reportable Not Reportable Absolute Lymphocytes Not Reportable Not Reportable Absolute Monocytes Not Reportable Not Reportable Absolute Eosinophils Not Reportable Not Reportable Absolute Basophils Not Reportable Not Reportable Retic Count (auto) 2.76 Absolute Retic 0.097 Sodium Potassium Chloride Carbon Dioxide Anion Gap BUN Creatinine Est GFR ( Amer) Est GFR (Non-Af Amer) Glucose Calcium Magnesium 1.6 Iron TIBC % Saturation Ferritin Total Bilirubin AST ALT Alkaline Phosphatase Total Protein Albumin Vitamin B12 Folate 10/16/16 02:55 WBC RBC Hgb Hct MCV MCH MCHC RDW Plt Count Seg Neutrophils % Lymphocytes % Monocytes % Eosinophils % Basophils % Absolute Neutrophils Absolute Lymphocytes Absolute Monocytes Absolute Eosinophils Absolute Basophils Retic Count (auto) Absolute Retic Sodium 140.1 Potassium 3.5 L Chloride 111 H Carbon Dioxide 23 Anion Gap 6 BUN 4 L Creatinine 0.42 L Est GFR ( Amer) > 60 Est GFR (Non-Af Amer) > 60 Glucose 86 Calcium 7.9 L Magnesium Iron 19.8 L TIBC 188 L % Saturation 11 Ferritin 148.00 Total Bilirubin 0.5 AST 15 L ALT 39 Alkaline Phosphatase 61 Total Protein 4.5 L Albumin 2.2 L Vitamin B12 330.0 Folate > 20.00 10/14/16 19:56 Clean Catch Midstream Urine Culture - Final NO GROWTH 2 DAYS 10/14/16 10/14/16 10/15/16 12:42 19:01 00:36 Troponin I 0.183 0.114 0.116 Impressions: Chest X-Ray 10/13/16 21:08 IMPRESSION: STABLE APPEARANCE OF LOCULATED BILATERAL PNEUMOTHORACES WITH ENLARGING PULMONARY NODULES AND RIGHT UPPER LOBE AIRSPACE DISEASE. OVERALL FINDINGS ARE CONCERNING FOR PROGRESSION OF METASTATIC DISEASE. SUPERIMPOSED PNEUMONIA CANNOT BE EXCLUDED. CORRELATE WITH FEVER/WHITE BLOOD CELL COUNT. Chest CT 10/14/16 00:00 IMPRESSION: 1. 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 2. INTERVAL DEVELOPMENT OF BILATERAL PLEURAL EFFUSIONS, RIGHT GREATER THAN LEFT. 3. PATCHY PARENCHYMAL DENSITIES IN THE POSTERIOR RIGHT LOWER LOBE AND POSTERIOR RIGHT UPPER LOBE. PROBABLY DUE TO COMPRESSIVE ATELECTASIS SECONDARY TO PLEURAL EFFUSION ALTHOUGH SUPERIMPOSED PNEUMONIA NOT ENTIRELY EXCLUDED. 4. LOCULATED PNEUMOTHORACES, LEFT GREATER THAN RIGHT, UNCHANGED. Assessment & Plan - Diagnosis (1) Neutropenic fever Plan: No fever and counts are recovering so discussed reducing her antibiotics with Dr. Banegas. Continue Neupogen for now. (2) Pneumonia Qualifiers: Pneumonia type: due to unspecified organism Laterality: right Lung location: upper lobe of lung Qualified Code(s): J18.1 - Lobar pneumonia, unspecified organism Is this a current diagnosis for this admission?: Yes (3) Acute pain of left lower extremity Is this a current diagnosis for this admission?: Yes (4) Hypotension Is this a current diagnosis for this admission?: Yes (5) high-grade myxoid sarcoma Is this a current diagnosis for this admission?: YesPlan: Discussed his findings with the patient and and will check into availability of the monoclonal antibody for him. (6) Anemia Qualifiers: Vitamin B12 deficiency anemia type: unspecified B12 deficiency Qualified Code(s): D51.9 - Vitamin B12 deficiency anemia, unspecified Is this a current diagnosis for this admission?: YesPlan: Both B12 and iron are low so discussed treating with iron and B12. - Time Critical Time spent with patient: 15-24 minutes Medications reviewed and adjusted accordingly: Yes
[2016-10-16] MEDS: TAMSULOSIN HCL 0.4 MG CAP.SR.24H PO SCH (22:19)
[2016-10-16] MEDS: QUETIAPINE FUMARATE 25 MG TABLET PO SCH (22:19)
[2016-10-16] MEDS: SENNOSIDES/DOCUSATE 8.6-50 MG 1 EACH TABLET PO SCH (22:19)
[2016-10-17] MEDS: OXYCODONE HCL IR 5 MG TABLET PO PRN ×3 (00:27→15:14)
[2016-10-17 05:54] LABS: HEMATOCRIT 31.1 % (37.9-51.0); HGB HCT DIFFERENCE -1.1; MEAN CORPUSCULAR HGB CONC 32.1 g/dL (32.0-36.0); MEAN CORPUSCULAR VOLUME 81 fl (80-97); RED BLOOD COUNT 3.84 10^6/uL (4.35-5.55); RED CELL DISTRIBUTION WIDTH 20.3 % (11.5-14.0)
[2016-10-17] MEDS: OXYCODONE HCL SR 40 MG TABLET PO SCH ×3 (06:04→21:43)
[2016-10-17] MEDS: ONDANSETRON 4 MG TAB.RAPDIS PO SCH ×3 (06:05→21:44)
[2016-10-17 06:13] LABS: ALANINE AMINOTRANSFERASE 35 U/L (21-72); ALBUMIN 2.6 g/dL (3.5-5.0); ALKALINE PHOSPHATASE 73 U/L (38-126); ANION GAP 6 (5-19); ASPARTATE AMINO TRANSFERASE 14 U/L (17-59); BILIRUBIN,TOTAL 0.7 mg/dL (0.2-1.3); BLOOD UREA NITROGEN 6 mg/dL (7-20); CALCIUM 9.1 mg/dL (8.4-10.2); CARBON DIOXIDE 31 mmol/L (22-30); CHLORIDE 104 mmol/L (98-107); CREATININE RESULT 0.46 mg/dL (0.52-1.25); GLUCOSE 79 mg/dL (75-110); POTASSIUM 3.9 mmol/L (3.6-5.0); SODIUM 140.9 mmol/L (137-145); TOTAL PROTEIN 5.4 g/dL (6.3-8.2); WHITE BLOOD COUNT 19.4 10^3/uL (4.0-10.5)
--- NOTE | 2016-10-17 07:57 | PDOC PROGRESS REPORT ---
Subjective Progress Note for:: 10/17/16 Subjective:: No acute events overnight, pt feels better this am Physical Exam Vital Signs: Temp Pulse Resp BP Pulse Ox 96 F L 96 14 112/79 95 10/17/16 04:00 10/17/16 06:43 10/17/16 05:37 10/17/16 05:37 10/17/16 04:00 Intake & Output 10/16/16 10/17/16 10/18/16 06:59 06:59 06:59 Intake Total 5499 1704 Output Total 4613 4400 Balance 879 -0146 Weight 68.2 kg General appearance: PRESENT: no acute distress, well-developed, well-nourished Head exam: PRESENT: atraumatic, normocephalic Eye exam: PRESENT: conjunctiva pink, EOMI, PERRLA. ABSENT: scleral icterus Ear exam: PRESENT: normal external ear exam Mouth exam: PRESENT: moist, tongue midline Neck exam: ABSENT: carotid bruit, JVD, lymphadenopathy, thyromegaly Respiratory exam: PRESENT: clear to auscultation regla. ABSENT: rales, rhonchi, wheezes Cardiovascular exam: PRESENT: RRR. ABSENT: diastolic murmur, rubs, systolic murmur Pulses: PRESENT: normal dorsalis pedis pul Vascular exam: PRESENT: normal capillary refill GI/Abdominal exam: PRESENT: normal bowel sounds, soft. ABSENT: distended, guarding, mass, organolmegaly, rebound, tenderness Rectal exam: PRESENT: deferred Extremities exam: PRESENT: full ROM. ABSENT: calf tenderness, clubbing, pedal edema Neurological exam: PRESENT: alert, awake, oriented to person, oriented to place , oriented to time, oriented to situation, CN II-XII grossly intact. ABSENT: motor sensory deficit Psychiatric exam: PRESENT: appropriate affect, normal mood. ABSENT: homicidal ideation, suicidal ideation Skin exam: PRESENT: dry, intact, warm. ABSENT: cyanosis, rash Results Laboratory Results: 10/17/16 05:41 10/17/16 05:41 10/15/16 10/17/16 10/17/16 17:05 05:41 05:41 WBC 2.8 L 19.4 H D RBC 3.58 L 3.84 L Hgb 9.6 L D 10.0 L Hct 29.1 L 31.1 L MCV 82 81 MCH 26.8 L 26.0 L MCHC 32.9 32.1 RDW 19.3 H 20.3 H Plt Count 343 435 Sodium 140.9 Potassium 3.9 Chloride 104 Carbon Dioxide 31 H Anion Gap 6 BUN 6 L Creatinine 0.46 L Est GFR ( Amer) > 60 Est GFR (Non-Af Amer) > 60 Glucose 79 Calcium 9.1 Total Bilirubin 0.7 AST 14 L ALT 35 Alkaline Phosphatase 73 Total Protein 5.4 L Albumin 2.6 L 10/14/16 19:56 Clean Catch Midstream Urine Culture - Final NO GROWTH 2 DAYS 10/14/16 10/14/16 10/15/16 12:42 19:01 00:36 Troponin I 0.183 0.114 0.116 Impressions: Chest X-Ray 10/13/16 21:08 IMPRESSION: STABLE APPEARANCE OF LOCULATED BILATERAL PNEUMOTHORACES WITH ENLARGING PULMONARY NODULES AND RIGHT UPPER LOBE AIRSPACE DISEASE. OVERALL FINDINGS ARE CONCERNING FOR PROGRESSION OF METASTATIC DISEASE. SUPERIMPOSED PNEUMONIA CANNOT BE EXCLUDED. CORRELATE WITH FEVER/WHITE BLOOD CELL COUNT. Chest CT 10/14/16 00:00 IMPRESSION: 1. 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 2. INTERVAL DEVELOPMENT OF BILATERAL PLEURAL EFFUSIONS, RIGHT GREATER THAN LEFT. 3. PATCHY PARENCHYMAL DENSITIES IN THE POSTERIOR RIGHT LOWER LOBE AND POSTERIOR RIGHT UPPER LOBE. PROBABLY DUE TO COMPRESSIVE ATELECTASIS SECONDARY TO PLEURAL EFFUSION ALTHOUGH SUPERIMPOSED PNEUMONIA NOT ENTIRELY EXCLUDED. 4. LOCULATED PNEUMOTHORACES, LEFT GREATER THAN RIGHT, UNCHANGED. Status: Image reviewed by me Assessment & Plan - Diagnosis (1) Neutropenic fever Is this a current diagnosis for this admission?: YesPlan: Wt ct now elevated, likely from neupogen, will discuss next steps of care w/ hospitalist team (2) Septic shock Is this a current diagnosis for this admission?: YesPlan: Resolved now, likely bacterial sepsis now improved, pt downgraded from ICU (3) Acute blood loss anemia Is this a current diagnosis for this admission?: YesPlan: Hb improved post transfusion, anemia multifactorial w/ blood loss possible from sarcoma and also chemo. (4) high-grade myxoid sarcoma Is this a current diagnosis for this admission?: YesPlan: Discussed w/ pt, he will receive adriamycin and lartruvo as outpt at [facility] on sunday. - Time Time Spent with patient: 35 or more minutes Critical Time spent with patient: 35 or more minutes Within: within 24 hours - Inpatient Certification Based on my medical assessment, after consideration of the patient's comorbidities, presenting symptoms, or acuity I expect that the services needed warrant INPATIENT care.: Yes I certify that my determination is in accordance with my understanding of Medicare's requirements for reasonable and necessary INPATIENT services [42 CFR 412.3e].: Yes Medical Necessity: Need for IV Antibiotics - Plan Summary Plan Summary: Will discuss w/ hospitalist team, likely d/c w/in 24 hours, discussed CODE STATUS this am w/ pt and for now pt remains FULL CODE
[2016-10-17] MEDS: IPRATROPIUM/ALBUTEROL 0.5-2.5 MG/3 ML AMPUL NEB SCH ×3 (08:43→20:35)
[2016-10-17] MEDS: DOCUSATE SODIUM 100 MG CAPSULE PO SCH ×2 (09:24→17:01)
[2016-10-17] MEDS: CYANOCOBALAMIN (VITAMIN B-12) 1,000 MCG TABLET PO SCH (09:25)
[2016-10-17] MEDS: FAMOTIDINE 20 MG TABLET PO SCH ×2 (09:25→21:43)
[2016-10-17] MEDS: POLYETHYLENE GLYCOL 3350 POWDER 17 GM/1 PACKET PO SCH (09:25)
[2016-10-17] MEDS: LEVOFLOXACIN 750 MG TABLET PO SCH (09:25)
[2016-10-17] MEDS: ENOXAPARIN SODIUM INJ 60 MG/0.6 ML DISP.SYRIN SUBCUT SCH ×2 (09:25→21:42)
[2016-10-17] MEDS: GUAIFENESIN 600 MG TABLET.SA PO SCH ×2 (09:28→21:43)
[2016-10-17] MEDS: TAMSULOSIN HCL 0.4 MG CAP.SR.24H PO SCH (21:42)
[2016-10-17] MEDS: SENNOSIDES/DOCUSATE 8.6-50 MG 1 EACH TABLET PO SCH (21:43)
[2016-10-17] MEDS: QUETIAPINE FUMARATE 25 MG TABLET PO SCH (21:43)
[2016-10-17] MEDS: ALPRAZOLAM 0.5 MG TABLET PO PRN (21:43)
[2016-10-18] MEDS: OXYCODONE HCL SR 40 MG TABLET PO SCH (05:01)
[2016-10-18] MEDS: ONDANSETRON 4 MG TAB.RAPDIS PO SCH (05:01)
[2016-10-18 06:08] LABS: MEAN CORPUSCULAR HEMOGLOBIN 26.1 pg (27.0-33.4); MEAN CORPUSCULAR HGB CONC 31.4 g/dL (32.0-36.0); MEAN CORPUSCULAR VOLUME 83 fl (80-97); RED BLOOD COUNT 3.85 10^6/uL (4.35-5.55); RED CELL DISTRIBUTION WIDTH 20.6 % (11.5-14.0); WHITE BLOOD COUNT 15.7 10^3/uL (4.0-10.5)
--- NOTE | 2016-10-18 07:51 | PDOC PROGRESS REPORT ---
Subjective Progress Note for:: 10/18/16 Subjective:: No acute events overnight Physical Exam Vital Signs: Temp Pulse Resp BP Pulse Ox 98.6 F 78 16 117/63 92 10/18/16 07:07 10/18/16 07:07 10/18/16 07:07 10/18/16 07:07 10/18/16 07:07 Intake & Output 10/17/16 10/18/16 10/19/16 06:59 06:59 06:59 Intake Total 1704 1632 Output Total 4400 1970 Balance -1936 -338 Weight 61.9 kg General appearance: PRESENT: no acute distress, well-developed, well-nourished Head exam: PRESENT: atraumatic, normocephalic Eye exam: PRESENT: conjunctiva pink, EOMI, PERRLA. ABSENT: scleral icterus Ear exam: PRESENT: normal external ear exam Mouth exam: PRESENT: moist, tongue midline Neck exam: ABSENT: carotid bruit, JVD, lymphadenopathy, thyromegaly Respiratory exam: PRESENT: clear to auscultation regla. ABSENT: rales, rhonchi, wheezes Cardiovascular exam: PRESENT: RRR. ABSENT: diastolic murmur, rubs, systolic murmur Pulses: PRESENT: normal dorsalis pedis pul Vascular exam: PRESENT: normal capillary refill GI/Abdominal exam: PRESENT: normal bowel sounds, soft. ABSENT: distended, guarding, mass, organolmegaly, rebound, tenderness Rectal exam: PRESENT: deferred Extremities exam: PRESENT: full ROM. ABSENT: calf tenderness, clubbing, pedal edema Neurological exam: PRESENT: alert, awake, oriented to person, oriented to place , oriented to time, oriented to situation, CN II-XII grossly intact. ABSENT: motor sensory deficit Psychiatric exam: PRESENT: appropriate affect, normal mood. ABSENT: homicidal ideation, suicidal ideation Skin exam: PRESENT: dry, intact, warm. ABSENT: cyanosis, rash Results Laboratory Results: 10/18/16 05:00 10/17/16 05:41 10/16/16 10/18/16 02:55 05:00 WBC 15.7 H RBC 3.85 L Hgb 10.0 L Hct 32.0 L MCV 83 MCH 26.1 L MCHC 31.4 L RDW 20.6 H Plt Count 451 H Transferrin 120 L 10/15/16 15:15 Sputum Gram Stain - Final 10/14/16 10/14/16 10/15/16 12:42 19:01 00:36 Troponin I 0.183 0.114 0.116 Impressions: Chest X-Ray 10/13/16 21:08 IMPRESSION: STABLE APPEARANCE OF LOCULATED BILATERAL PNEUMOTHORACES WITH ENLARGING PULMONARY NODULES AND RIGHT UPPER LOBE AIRSPACE DISEASE. OVERALL FINDINGS ARE CONCERNING FOR PROGRESSION OF METASTATIC DISEASE. SUPERIMPOSED PNEUMONIA CANNOT BE EXCLUDED. CORRELATE WITH FEVER/WHITE BLOOD CELL COUNT. Chest CT 10/14/16 00:00 IMPRESSION: 1. 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 2. INTERVAL DEVELOPMENT OF BILATERAL PLEURAL EFFUSIONS, RIGHT GREATER THAN LEFT. 3. PATCHY PARENCHYMAL DENSITIES IN THE POSTERIOR RIGHT LOWER LOBE AND POSTERIOR RIGHT UPPER LOBE. PROBABLY DUE TO COMPRESSIVE ATELECTASIS SECONDARY TO PLEURAL EFFUSION ALTHOUGH SUPERIMPOSED PNEUMONIA NOT ENTIRELY EXCLUDED. 4. LOCULATED PNEUMOTHORACES, LEFT GREATER THAN RIGHT, UNCHANGED. Assessment & Plan - Diagnosis (1) Neutropenic fever Is this a current diagnosis for this admission?: YesPlan: Resolved, pt doing well today (2) Septic shock Is this a current diagnosis for this admission?: YesPlan: Resolved, pt doing well now (3) Acute blood loss anemia Is this a current diagnosis for this admission?: YesPlan: Hb stable post tx (4) high-grade myxoid sarcoma Is this a current diagnosis for this admission?: YesPlan: Further rx planned as outpt w/ Adriamycin/Lartruvo. Will give pt f/u date with us
[2016-10-18] MEDS: IPRATROPIUM/ALBUTEROL 0.5-2.5 MG/3 ML AMPUL NEB SCH (08:24)
[2016-10-18] MEDS: POLYETHYLENE GLYCOL 3350 POWDER 17 GM/1 PACKET PO SCH (09:23)
[2016-10-18] MEDS: ENOXAPARIN SODIUM INJ 60 MG/0.6 ML DISP.SYRIN SUBCUT SCH (09:24)
[2016-10-18] MEDS: FAMOTIDINE 20 MG TABLET PO SCH (09:25)
[2016-10-18] MEDS: DOCUSATE SODIUM 100 MG CAPSULE PO SCH (09:25)
[2016-10-18] MEDS: LEVOFLOXACIN 750 MG TABLET PO SCH (09:25)
[2016-10-18] MEDS: OXYCODONE HCL IR 5 MG TABLET PO PRN (09:25)
[2016-10-18] MEDS: CYANOCOBALAMIN (VITAMIN B-12) 1,000 MCG TABLET PO SCH (09:25)
[2016-10-18] MEDS: GUAIFENESIN 600 MG TABLET.SA PO SCH (09:25)
[2016-10-18 12:31] VITALS: BP 112/79
--- NOTE | 2016-10-19 17:57 | PDOC DISCHARGE SUMMARY ---
General - Admit/Disc Date/PCP Admission Date/Primary Care Provider: 10/14/16 07:51 MCKINLEY REARDON, DO Discharge Date: 10/18/16 - Discharge Diagnosis (1) Septic shock Is this a current diagnosis for this admission?: Yes (2) Acute respiratory failure with hypoxia Is this a current diagnosis for this admission?: Yes (3) Elevated troponin I level Is this a current diagnosis for this admission?: Yes (4) Pneumonia Is this a current diagnosis for this admission?: Yes (5) Constipation Is this a current diagnosis for this admission?: Yes (6) high-grade myxoid sarcoma Is this a current diagnosis for this admission?: Yes 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 Is this a current diagnosis for this admission?: Yes (9) Continuous tobacco abuse Is this a current diagnosis for this admission?: Yes (10) DVT prophylaxis Is this a current diagnosis for this admission?: Yes (11) Full code status Is this a current diagnosis for this admission?: Yes (12) Anemia Is this a current diagnosis for this admission?: Yes (13) Pneumothorax on left Is this a current diagnosis for this admission?: Yes (14) Pulmonary embolus, right Is this a current diagnosis for this admission?: Yes - Additional Information Resuscitation Status: Full Code Discharge Diet: Regular Discharge Activity: Activity As Tolerated, Balance Activity w/Rest Home Medications: Alprazolam [Xanax] 1 mg PO Q12HP PRN 10/14/16 Cranberry [Cranberry 500 mg Capsule] 500 mg PO DAILY 10/14/16 Cyanocobalamin (Vitamin B-12) [Vitamin B-12 1000 mcg Tablet] 1,000 mcg PO DAILY 10/14/16 Docusate Sodium [Colace 100 mg Capsule] 100 mg PO Q12 10/14/16 Fentanyl [Subsys] 400 mcg SL ASDIR PRN 10/14/16 Yenifer Root [Yenifer] 550 mg PO DAILY 10/14/16 Linaclotide [Linzess 145 Mcg Capsule] 145 mcg PO ACBRKFST 10/14/16 Multivit-Min/FA/Lycopen/Lutein [Men 50 Plus Multivitamin Tab] 1 tab PO QHS 10/14 Ondansetron HCl [Zofran 4 mg Tablet] 4 mg PO Q8 10/14/16 Oxycodone HCl 20 mg PO Q4HP PRN 10/14/16 Oxycodone HCl [Oxycontin] 80 mg PO Q8 10/14/16 Quetiapine Fumarate [Seroquel 25 mg Tablet] 25 mg PO QHS 10/14/16 Tamsulosin HCl [Flomax 0.4 mg Cap.sr] 0.4 mg PO QHS 10/14/16 Docusate Sodium [Colace 100 mg Capsule] 100 mg PO BID capsule 10/18/16 Enoxaparin Sodium [Lovenox Inj 80 mg/0.8 ml Disp.syrin] 60 mg SQ Q12 #0 Guaifenesin [Mucinex Sr 600 mg Tablet.sa] 1,200 mg PO Q12 #20 tablet.sa Ipratropium/Albuterol Sulfate [Duoneb 3 ml Ampul] 3 ml NEB [id number] #1 packet Levofloxacin [Levaquin 750 mg Tablet] 750 mg PO DAILY #7 tablet 10/18/16 Nebulizer [Nebulizer Machine] 1 each ASDIR PRN #1 kit 10/18/16 History of Present Illness History of Present Illness: ROCK Chan DUARTE is a 61 year old male with sarcoma of the left thigh, with lung and liver metastases, but no other chronic pulmonary or biliary disease, who presents to the emergency room for evaluation of above complaints. Patient has been discussed with emergency room physician who evaluated the patient. Patient describes fever to 102 at home, generalized weakness, lethargy, of approximately 24 hours duration. Mostly dry cough. However, there is been no nausea vomiting, diarrhea or dysuria, chest or abdominal pain. chronic anemia, occasionally requiring blood transfusion. Was actually scheduled to have a blood transfusionthe morning of the , but with fever and lethargy, patient was brought to the emergency room for further evaluation. Hypoxic tachycardic and hypotensive upon initial arrival, and for some time thereafter. However, he has responded nicely to treatment so far, including IV antibiotics, IV fluid, 2 units of packed cells, and Levophed drip. Current blood pressure is acceptable, and patient is more alert and states he feels better. History of bilateral pneumothoraces, status post VATS procedure bilaterally, along with talc procedure to the right lung. Hospitalized on our service the through the of last July ; transferred to [facility] for a persistent air leak around a right sided chest tube. History and physical and discharge summary have been reviewed. Prior to my being called, the emergency room physician did discuss the patient with Dr. Calderon, power generation technician oncologist. She agreed with need for transfusion, and will see the patient in follow-up in the hospital. Hospital Course Hospital Course: Patient initially required levo fed, but responded well to volume resuscitation. Patient was found to have a mild pneumonia in addition to progression of his sarcoma. Patient did have some leukopenia but no overt neutrophilia and was started on Neupogen. This accounted for the increase in his white count.Patient was initially started on vancomycin, Levaquin, and cefepime, but was quickly transitioned off of vancomycin at least 48 hours prior to discharge, cefepime 24 hours prior to discharge and was doing well with improvement in his white count. Patient was begun on good bowel regimen with good results. Patient was discharged home on 10/18/2016 with no complaints. Sputum culture did grow out MRSA, but it is felt that patient's pathogen was likely an atypical organism as I think Meissen was stopped prior to discharge and he had no recurrence in his symptomatology. Physical Exam Vital Signs: Temp Pulse Resp BP Pulse Ox 98.5 F 84 22 H 112/79 91 L 10/18/16 12:30 10/18/16 12:30 10/18/16 12:30 10/18/16 12:30 10/18/16 12:30 Intake & Output 10/18/16 10/19/16 10/20/16 06:59 06:59 06:59 Intake Total 1632 Output Total 1970 Balance -338 Weight 61.9 kg Exam: General: Awake alert and oriented x3, no acute respiratory distress, acute and chronically ill-appearing HEENT: AT/NC, PERRL, EOMI, oropharynx is moist, pink, no scleral icterus, no conjunctival injection Neck: No JVD, trachea midline Chest: Scattered Rhonchi bilaterally CV: Regular rate and rhythm, normal S1 and S2, no murmur, rub, or gallop Abdomen: Soft, nontender to palpation, nondistended, minimal bowel sounds; no rebound, rigidity, or guarding Extremities: No cyanosis, clubbing; 2+edema Neuro: Cranial nerves II through XII are grossly intact without focal deficits; awake alert and orientedx3 Psych: Normal mood and affect Results Laboratory Results: 10/18/16 05:00 10/17/16 05:41 10/15/16 15:15 Sputum Gram Stain - Final 10/15/16 15:15 Sputum Sputum Culture - Final Mrsa (Meth Resis Staph Aureus) C.albicans/C.dubliniensis Greatly Reduced Normal Nara 10/14/16 10/14/16 10/15/16 12:42 19:01 00:36 Troponin I 0.183 0.114 0.116 Impressions: Chest X-Ray 10/13/16 21:08 IMPRESSION: STABLE APPEARANCE OF LOCULATED BILATERAL PNEUMOTHORACES WITH ENLARGING PULMONARY NODULES AND RIGHT UPPER LOBE AIRSPACE DISEASE. OVERALL FINDINGS ARE CONCERNING FOR PROGRESSION OF METASTATIC DISEASE. SUPERIMPOSED PNEUMONIA CANNOT BE EXCLUDED. CORRELATE WITH FEVER/WHITE BLOOD CELL COUNT. Chest CT 10/14/16 00:00 IMPRESSION: 1. 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 2. INTERVAL DEVELOPMENT OF BILATERAL PLEURAL EFFUSIONS, RIGHT GREATER THAN LEFT. 3. PATCHY PARENCHYMAL DENSITIES IN THE POSTERIOR RIGHT LOWER LOBE AND POSTERIOR RIGHT UPPER LOBE. PROBABLY DUE TO COMPRESSIVE ATELECTASIS SECONDARY TO PLEURAL EFFUSION ALTHOUGH SUPERIMPOSED PNEUMONIA NOT ENTIRELY EXCLUDED. 4. LOCULATED PNEUMOTHORACES, LEFT GREATER THAN RIGHT, UNCHANGED.
== END 2016-10-18 12:50 | disposition home or self-care (01) | DRG 871 ==
LOC: ER 20:45 → UNDOADMIN 10-14 03:27 → EH 10-14 03:27 → ICU 10-15 03:12 → 3W 10-17 06:10
PROVIDERS: ADMIT Family Medicine; ATTEND Family Medicine
PROC: 5A09457 Assistance with Respiratory Ventilation, 24-96 Consecutive Hours, Continuous Positive Airway Pressure (ICD-10-PCS; 2016-10-13)
PROC: 30233N1 Transfusion of Nonautologous Red Blood Cells into Peripheral Vein, Percutaneous Approach (ICD-10-PCS; principal; 2016-10-14)
PROC: 30233N1 Transfusion of Nonautologous Red Blood Cells into Peripheral Vein, Percutaneous Approach (ICD-10-PCS; 2016-10-15)
DX: A41.9 Sepsis, unspecified organism (principal); R65.21 Severe sepsis with septic shock; J96.01 Acute respiratory failure with hypoxia; I26.99 Other pulmonary embolism without acute cor pulmonale; J18.1 Lobar pneumonia, unspecified organism; C49.22 Malignant neoplasm of connective and soft tissue of left lower limb, including hip; C78.7 Secondary malignant neoplasm of liver and intrahepatic bile duct; C78.00 Secondary malignant neoplasm of unspecified lung; J93.81 Chronic pneumothorax; D50.0 Iron deficiency anemia secondary to blood loss (chronic); D70.9 Neutropenia, unspecified; R74.8 Abnormal levels of other serum enzymes; K59.00 Constipation, unspecified; R50.81 Fever presenting with conditions classified elsewhere; E53.8 Deficiency of other specified B group vitamins; M19.90 Unspecified osteoarthritis, unspecified site; R52 Pain, unspecified; Z87.891 Personal history of nicotine dependence; Z79.899 Other long term (current) drug therapy; Z90.49 Acquired absence of other specified parts of digestive tract; Z86.718 Personal history of other venous thrombosis and embolism
CPT/HCPCS: 36415; 36430; 36591; 71010; 71260; 80048; 80053; 80202; 82550; 82553; 82607; 82728; 82746; 82803; 83010; 83540; 83550; 83615; 83735; 84466; 84484; 85025; 85027; 85045; 85362; 85384; 85610; 85730; 86850; 86900; 86901; 86920; 87040; 87070; 87077; 87086; 87186; 87205; 93005; 93010; 94640; 94660; 96360; 99291; 99292; J0456; J0692; J1442; J1642; J1650; J1940; J1956; J3370; J3490; J7030; J7060; J7620; P9016; P9047; Q0138; S0119

== ENCOUNTER 2016-10-26 08:06 | Outpatient (CLI) | payer BC ==
[2016-10-26] MEDS ORDERED: PALONOSETRON 0.25 MG/5 ML SDV IV PRN (08:46)
[2016-10-26] MEDS ORDERED: DEXAMETHASONE SOD PHOSPHATE 10 MG in DEXTROSE 5%-WATER 50 ML IV PRN (08:48)
[2016-10-26] MEDS ORDERED: DIPHENHYDRAMINE HCL 50 MG/ML VIAL IV PRN (08:49)
[2016-10-26] MEDS ORDERED: FOSAPREPITANT DIMEGLUMINE 150 MG in NORMAL SALINE 150 ML IV PRN (08:50)
[2016-10-26 09:11] LABS: ALANINE AMINOTRANSFERASE 18 U/L (21-72); ALBUMIN 3.3 g/dL (3.5-5.0); ALKALINE PHOSPHATASE 58 U/L (38-126); ANION GAP 11 (5-19); ASPARTATE AMINO TRANSFERASE 17 U/L (17-59); BILIRUBIN,DIRECT 0.1 mg/dL (0.0-0.4); BILIRUBIN,TOTAL 0.6 mg/dL (0.2-1.3); BLOOD UREA NITROGEN 20 mg/dL (7-20); CALCIUM 9.4 mg/dL (8.4-10.2); CARBON DIOXIDE 32 mmol/L (22-30); CHLORIDE 98 mmol/L (98-107); CREATININE RESULT 0.63 mg/dL (0.52-1.25); GLUCOSE 146 mg/dL (75-110); MAGNESIUM 1.9 mg/dL (1.6-2.3); POTASSIUM 4.2 mmol/L (3.6-5.0); SODIUM 140.6 mmol/L (137-145); TOTAL PROTEIN 6.3 g/dL (6.3-8.2)
[2016-10-26 09:13] VITALS: BP 100/62
[2016-10-26] MEDS ORDERED: NORMAL SALINE IV PRN ×2 (09:14→10:08)
[2016-10-26] MEDS ORDERED: DOXORUBICIN HCL IV PRN (09:14)
[2016-10-26] MEDS: NORMAL SALINE 250 ML IV PRN ×2 (09:40→10:53)
[2016-10-26] MEDS ORDERED: WATER IV PRN (09:46)
[2016-10-26] MEDS ORDERED: DEXTROSE 5% IV PRN (09:46)
[2016-10-26] MEDS ORDERED: [UNRECOGNIZED DRUG - OTHER] IV PRN (09:46)
[2016-10-26] MEDS ORDERED: [UNRECOGNIZED DRUG - OTHER] IV PRN (10:08)
== END 2016-10-26 15:00 | disposition home or self-care (01) ==
LOC: II 08:06 → 5TH 08:09 → II 15:00
PROVIDERS: ATTEND Internal Medicine
DX: Z51.11 Encounter for antineoplastic chemotherapy (principal); C49.22 Malignant neoplasm of connective and soft tissue of left lower limb, including hip
CPT/HCPCS: 96413; 96415; 96367; 96375; 36415; 82465; 83735; 80053; J1200; J9000; J7050; J1100; J1453; J2469; C9399; J7060

== ENCOUNTER → 2016-10-31 | Outpatient (CLI) | payer BC | LOC: RAD 10:53 | PROVIDERS: ATTEND Internal Medicine | DX: Z08 Encounter for follow-up examination after completed treatment for malignant neoplasm (principal); C49.22 Malignant neoplasm of connective and soft tissue of left lower limb, including hip | CPT/HCPCS: 78472; A9560; Q9969 ==

== ENCOUNTER 2016-11-02 11:20 | Outpatient (CLI) | payer BC ==
[~2016-11-02 11:20] MED LIST changes: -CEFAZOLIN SODIUM 1 GM in DEXTROSE 5%-WATER 50 ML IV PRN; +DEXAMETHASONE SOD PHOS INJ 10 MG/1 ML VIAL IV PRN; -DEXTROSE 5%-1/2 NORMAL SALINE 1,000 ML IV PRN; -DIAZEPAM 5 MG TABLET PO PRN; +DIPHENHYDRAMINE HCL 50 MG/ML VIAL IV PRN; +NORMAL SALINE 250 ML IV PRN; +NORMAL SALINE IV PRN; -OXYCODONE-ACETAMINOPHEN 5-325 MG TABLET PO PRN; +[UNRECOGNIZED DRUG - OTHER] IV PRN
[2016-11-02 11:47] VITALS: BP 100/50
== END 2016-11-02 14:20 | disposition home or self-care (01) ==
LOC: II 11:20 → 5TH 11:24 → II 14:20
PROVIDERS: ATTEND Internal Medicine
PROC: 3E043GC Introduction of Other Therapeutic Substance into Central Vein, Percutaneous Approach (ICD-10-PCS; principal; 2016-11-02)
PROC: 3E04305 Introduction of Other Antineoplastic into Central Vein, Percutaneous Approach (ICD-10-PCS; 2016-11-02)
DX: C49.22 Malignant neoplasm of connective and soft tissue of left lower limb, including hip (principal); Z51.11 Encounter for antineoplastic chemotherapy
CPT/HCPCS: 96413; 96375; J1200; J7050; J1100; C9399; 96360; 96374

== ENCOUNTER 2016-11-16 11:22 | Outpatient (CLI) | payer BC ==
[~2016-11-16 11:22] MED LIST changes: -DEXAMETHASONE SOD PHOS INJ 10 MG/1 ML VIAL IV PRN; +DEXAMETHASONE SOD PHOSPHATE 10 MG in NORMAL SALINE 50 ML IV PRN; +DISPOSABLE IV PRN; +DOXORUBICIN HCL IV PRN; +FOSAPREPITANT DIMEGLUMINE 150 MG in NORMAL SALINE 150 ML IV PRN; +PALONOSETRON 0.25 MG/5 ML SDV IV PRN; +[UNRECOGNIZED DRUG - OTHER] IV PRN; -[UNRECOGNIZED DRUG - OTHER] IV PRN
[2016-11-16 13:53] VITALS: BP 84/40
== END 2016-11-16 15:30 | disposition home or self-care (01) ==
LOC: II 11:22 → 5TH 11:24 → II 15:30
PROVIDERS: ATTEND Internal Medicine
PROC: 3E0430M Introduction of Antineoplastic, Monoclonal Antibody, into Central Vein, Percutaneous Approach (ICD-10-PCS; principal; 2016-11-16)
PROC: 3E043GC Introduction of Other Therapeutic Substance into Central Vein, Percutaneous Approach (ICD-10-PCS; 2016-11-16)
PROC: 3E043GC Introduction of Other Therapeutic Substance into Central Vein, Percutaneous Approach (ICD-10-PCS; 2016-11-16)
PROC: 3E043GC Introduction of Other Therapeutic Substance into Central Vein, Percutaneous Approach (ICD-10-PCS; 2016-11-16)
DX: C49.22 Malignant neoplasm of connective and soft tissue of left lower limb, including hip (principal); Z51.11 Encounter for antineoplastic chemotherapy
CPT/HCPCS: 96411; 96413; 96367; 96375; J1200; J9000; J7050; J3490; J1100; J1453; J2469; C9485; 96409

== ENCOUNTER 2016-11-23 08:47 | Outpatient (CLI) | payer BC ==
[~2016-11-23 08:47] MED LIST changes: -DISPOSABLE IV PRN; -DOXORUBICIN HCL IV PRN; -FOSAPREPITANT DIMEGLUMINE 150 MG in NORMAL SALINE 150 ML IV PRN; -NORMAL SALINE IV PRN; -PALONOSETRON 0.25 MG/5 ML SDV IV PRN; -[UNRECOGNIZED DRUG - OTHER] IV PRN
[2016-11-23] MEDS ORDERED: NORMAL SALINE IV PRN (08:50)
[2016-11-23] MEDS ORDERED: [UNRECOGNIZED DRUG - OTHER] IV PRN (08:50)
[2016-11-23 09:42] LABS: MAGNESIUM 1.9 mg/dL (1.6-2.3); POTASSIUM 4.7 mmol/L (3.6-5.0)
[2016-11-23 09:43] VITALS: BP 91/32
== END 2016-11-23 12:30 | disposition home or self-care (01) ==
LOC: II 08:47 → 5TH 08:48 → II 12:30
PROVIDERS: ATTEND Internal Medicine
PROC: 3E0430M Introduction of Antineoplastic, Monoclonal Antibody, into Central Vein, Percutaneous Approach (ICD-10-PCS; principal; 2016-11-23)
PROC: 3E0433Z Introduction of Anti-inflammatory into Central Vein, Percutaneous Approach (ICD-10-PCS; 2016-11-23)
DX: Z51.11 Encounter for antineoplastic chemotherapy (principal); C49.22 Malignant neoplasm of connective and soft tissue of left lower limb, including hip
CPT/HCPCS: 96413; 96375; 96361; 36415; 82728; 83540; 83550; 83735; 84132; J1200; J7050; J1100; C9485; 96360; 96367; 96374

== ENCOUNTER 2016-11-27 02:13 | Emergency (ER) | payer BC ==
[2016-11-27] MEDS ORDERED: IPRATROPIUM/ALBUTEROL 0.5-2.5 MG/3 ML AMPUL NEB ONE (02:21)
[2016-11-27] MEDS ORDERED: NORMAL SALINE 1000 ML 1,000 ML IV ONE ×2 (02:22→04:29)
--- NOTE | 2016-11-27 02:29 | ER Document Report ---
ED Respiratory Problem - General Chief Complaint: Shortness Of Breath Stated Complaint: DIFFICULTY BREATHING Notes: The patient is a 61-year-old male, past medical history metastatic left thigh sarcoma to lungs s/p B/L VATS, chemotherapy and radiation, DVT/PE (on Lovenox), multiple prior pneumothoraces, presents with increasing shortness of breath and decreased responsiveness over the past day. In EMS arrived, his oxygen was in the 50s and he was somnolent. An NPL was attempted and the patient woke up. He was given a DuoNeb by EMS prior to arrival. On arrival to the emergency room, the patient is awake, alert and oriented 4. His oxygenation is 69% on a nonrebreather with Duoneb. He was immediately placed on BiPAP with improvement of his oxygenation to 95% on 70% FiO2. Patient denies chest pain, fevers, cough , nausea, vomiting, back pain, numbness, tingling or headache. Patient asked if he would like to be full code and to be intubated. He does not give an answer. His states that he is full code and does not have a DO NOT RESUSCITATE/DO NOT INTUBATE order. TRAVEL OUTSIDE OF THE [place] IN LAST 30 DAYS: No - Related Data Allergies/Adverse Reactions: No Known Allergies Allergy (Verified 06/08/16 08:03) Past Medical History - General Information source: Patient, Emergency Med Personnel - Social History Smoking Status: Current Every Day Smoker Family History: Reviewed & Not Pertinent - Past Medical History Cardiac Medical History: Reports: Hx DVT, Hx Hypercholesterolemia, Hx Pulmonary Embolism Denies: Hx Congestive Heart Failure, Hx Coronary Artery Disease, Hx Heart Attack, Hx Hypertension Pulmonary Medical History: Denies: Hx Asthma, Hx Bronchitis, Hx COPD, Hx Pneumonia Neurological Medical History: Denies: Hx Cerebrovascular Accident, Hx Seizures Endocrine Medical History: Denies: Hx Diabetes Mellitus Type 1, Hx Diabetes Mellitus Type 2, Hx Hyperthyroidism, Hx Hypothyroidism Renal/ Medical History: Denies: Hx Peritoneal Dialysis Malignancy Medical History: Reports Hx Bone Cancer - Sarcoma, left thigh GI Medical History: Denies: Hx Cirrhosis, Hx Gastroesophageal Reflux Disease, Hx Hepatitis Musculoskeltal Medical History: Denies Hx Arthritis Infectious Medical History: Denies: Hx Hepatitis Past Surgical History: Reports: Hx Appendectomy, Other - Biopsy of sarcoma, left thigh - Immunizations Hx Diphtheria, Pertussis, Tetanus Vaccination: No - UNSURE Review of Systems - Review of Systems Notes: REVIEW OF SYSTEMS: CONSTITUTIONAL: -fevers, -chills EENT: -eye pain, -difficulty swallowing, -nasal congestion CARDIOVASCULAR:-chest pain, -syncope. RESPIRATORY: +cough, +SOB GASTROINTESTINAL: -abdominal pain, -nausea, -vomiting, -diarrhea GENITOURINARY: -dysuria, -hematuria MUSCULOSKELETAL: -back pain, -neck pain SKIN: -rash or skin lesions. HEMATOLOGIC: -easy bruising or bleeding. LYMPHATIC: -swollen, enlarged glands. NEUROLOGICAL: -altered mental status or loss of consciousness, -headache, - neurologic symptoms PSYCHIATRIC: -anxiety, -depression. ALL OTHER SYSTEMS REVIEWED AND NEGATIVE. Physical Exam - Vital signs Vitals: Resp Pulse Ox 28 H 66 L 11/27/16 02:16 11/27/16 02:16 - Notes Notes: PHYSICAL EXAMINATION: GENERAL: Cachectic, moderate respiratory distress HEAD: Atraumatic, normocephalic. EYES: Pupils equal round and reactive to light, extraocular movements intact, sclera anicteric, conjunctiva are normal. ENT: nares patent, oropharynx clear without exudates. Moist mucous membranes. NECK: Normal range of motion, supple without lymphadenopathy LUNGS: Tachypnea, bilateral rhonchi and coarse breath sounds. Right upper chest wall port. HEART: Tachycardia without murmurs. ABDOMEN: Soft, nontender, normoactive bowel sounds. No guarding, no rebound. No masses appreciated. EXTREMITIES: Normal range of motion. 1+ pitting edema in B/L extremities up to knees. No cyanosis. NEUROLOGICAL: Cranial nerves grossly intact. Normal speech. Normal sensory and motor exams. PSYCH: Normal mood, normal affect. SKIN: Warm, Dry, normal turgor, no rashes or lesions noted. Course - Re-evaluation Re-evalutation: 11/27/16 03:16 Pt hypoxic to 69% on NRB, and he was placed immediately on BiPAP on arrival to the emergency room. His oxygenation improved to 94% on BiPAP. Chest x-ray shows bilateral loculated pneumothoraces, without tension. He also has evidence of pneumonia on chest x-ray. Spoke to surgeon on-call, Dr. Mills, and he recommends transfer to [facility] for Thoracic Surgery consultation. Spoke to Dr. Betancur ([facility] Thoracic Surgeon) at 03:10 and he will consult on patient. He recommends placing pigtails into the pneumothoraces due to transportation time. Once again, spoke to Dr. Mills and he will be down to place chest tube due to history of multiple pneumothoraces, loculations and location of the pneumothoraces. 11/27/16 03:[address] Davis ([facility] Oncology) and he has accepted the patient. Patient's blood pressure has improved to 110/74. Broad-spectrum antibiotics started for possible HCAP, tachycardia and slight hypotension. Patient also anemic with a hemoglobin is 6.7. He has required blood transfusions in the past and will type and cross patient for 1 PRBC. Pt also with a troponin of 0.077, which is lower than his prior values. EKG is nonischemic and patient has no chest pain. Repeat chest x-ray after right- sided chest tube shows reexpansion of the right lung. 11/27/16 05:53 Pt stable and awaiting transportation. - Vital Signs Vital signs: Temp Pulse Resp BP Pulse Ox 97.7 F 21 H 96/64 L 96 11/27/16 05:05 11/27/16 05:11 11/27/16 05:11 11/27/16 05:11 - Laboratory Result Diagrams: 11/27/16 02:25 11/27/16 02:25 Laboratory results interpreted by me: 11/27/16 11/27/16 11/27/16 02:25 02:25 02:25 WBC 2.3 L RBC 2.31 L Hgb 6.7 L Hct 20.7 L RDW 21.3 H Seg Neutrophils % 80.4 H Lymphocytes % 11.6 L Absolute Lymphocytes 0.3 L APTT 54.4 H Carbonic Acid ABG pCO2 ABG pO2 ABG HCO3 ABG Total CO2 Sodium 136.8 L Chloride 97 L BUN 35 H Glucose 130 H NT-Pro-B Natriuret Pep Crossmatch 11/27/16 11/27/16 11/27/16 02:25 02:45 03:00 WBC RBC Hgb Hct RDW Seg Neutrophils % Lymphocytes % Absolute Lymphocytes APTT Carbonic Acid 1.40 H ABG pCO2 46.4 H ABG pO2 77.5 L ABG HCO3 26.8 H ABG Total CO2 28.3 H Sodium Chloride BUN Glucose NT-Pro-B Natriuret Pep 4440 H Crossmatch See Detail - Diagnostic Test Radiology reviewed: Image reviewed, Reports reviewed Radiology results interpreted by me: CXR: Lucency of the medial left hemithorax and right lower hemithorax may indicate small to moderate bilateral pneumothoraces in this patient with severe bullous disease. Moderate mixed interstitial and airspace opacities consistent with history is metastatic disease. 11/27/16 04:38 Repeat CXR s/p chets tube placement: Improved aeration of the right lung. Small-moderate loculated bilateral pneumothoraces and/or extensive bullous disease. Right-sided chest tube. Extensive interstitial and airspace opacities consistent with history of metastatic disease. - EKG Interpretation by Me EKG shows normal: Sinus rhythm, [place], Intervals, QRS Complexes Additional EKG results interpreted by me: Non-specific anterior T wave changes Critical Care Note - Critical Care Note Total time excluding time spent on procedures (mins): 65 Discharge - Discharge Clinical Impression: Hypoxia Pneumothorax Qualifiers: Pneumothorax type: unspecified pneumothorax Qualified Code(s): J93.9 - Pneumothorax, unspecified Anemia Qualifiers: Anemia type: unspecified type Qualified Code(s): D64.9 - Anemia, unspecified Condition: Critical Disposition: [facility] Referrals: MCKINLEY REARDON DO [Primary Care Provider] - Follow up as needed
[2016-11-27 02:40] LABS: ABSOLUTE LYMPHOCYTES (AUTO) 0.3 10^3/uL (0.5-4.7); ABSOLUTE MONOCYTES (AUTO) 0.2 10^3/uL (0.1-1.4); ABSOLUTE NEUT (AUTO) 1.9 10^3/uL (1.7-8.2); BASOPHILS % (AUTO) 0.6 % (0-2); HEMATOCRIT 20.7 % (37.9-51.0); HGB HCT DIFFERENCE -0.6; LYMPHOCYTES % (AUTO) 11.6 % (13-45); MEAN CORPUSCULAR HEMOGLOBIN 29.1 pg (27.0-33.4); MEAN CORPUSCULAR HGB CONC 32.6 g/dL (32.0-36.0); MEAN CORPUSCULAR VOLUME 89 fl (80-97); MONOCYTES % (AUTO) 7.4 % (3-13); RED BLOOD COUNT 2.31 10^6/uL (4.35-5.55); RED CELL DISTRIBUTION WIDTH 21.3 % (11.5-14.0); SEGMENTED NEUTROPHILS % (AUTO) 80.4 % (42-78); WHITE BLOOD COUNT 2.3 10^3/uL (4.0-10.5)
[2016-11-27] MEDS ORDERED: NORMAL SALINE 250 ML IV PRN (02:44)
[2016-11-27 02:45] LABS: HEMOGLOBIN 6.7 g/dL (13.5-17.0)
[2016-11-27 02:51] LABS: PROTHROMBIN TIME 15.3 SEC (11.4-15.4)
[2016-11-27 02:52] LABS: PARTIAL THROMBOPLASTIN TIME 54.4 SEC (23.5-35.8)
[2016-11-27 02:53] LABS: ANION GAP 10 (5-19); BLOOD UREA NITROGEN 35 mg/dL (7-20); CALCIUM 8.9 mg/dL (8.4-10.2); CARBON DIOXIDE 30 mmol/L (22-30); CHLORIDE 97 mmol/L (98-107); CREATINE KINASE 121 U/L (55-170); CREATININE RESULT 0.63 mg/dL (0.52-1.25); GLUCOSE 130 mg/dL (75-110); POTASSIUM 4.6 mmol/L (3.6-5.0); SODIUM 136.8 mmol/L (137-145)
[2016-11-27] MEDS ORDERED: PIPERACILLIN/TAZOBACTAM 3.375 GM VIAL IV ONE (03:01)
[2016-11-27] MEDS ORDERED: VANCOMYCIN HCL INJ 1000 MG VIAL IV ONE (03:01)
[2016-11-27 03:21] LABS: ARTERIAL BLOOD BASE EXCESS 1.6 mmol/L; ARTERIAL BLOOD O2 SATURATION 95.2 % (94-98)
[2016-11-27] MEDS ORDERED: LIDOCAINE 1.5%/EPINEPHRINE INJ-PF 30 ML SDV INJ ONE (03:26)
[2016-11-27 03:29] LABS: TROPONIN I 0.077 ng/mL
[2016-11-27] MEDS ORDERED: LIDOCAINE 1% INJ-PF (10 MG/ML) 30 ML SDV ONE (03:39)
[2016-11-27 08:57] VITALS: BP 94/70
--- NOTE | 2016-11-27 09:26 | ER Document Report ---
Doctor's Note Notes: 11/27/16 09:25 Transport is here for the patient this time. He reports he feels reasonably well and is on BiPAP. Transport wanted to try him off of BiPAP the elbow he did that he has his chest tubes in. He is normally on 4 L nasal cannula at home. He will be put on a nonrebreather mask and observed for a little while and decide if he can transport without BiPAP.
--- NOTE | 2016-11-27 10:47 | EKG REPORT ---
SEVERITY:- ABNORMAL ECG - SINUS TACHYCARDIA NONSPECIFIC T ABNORMALITIES, ANTERIOR LEADS : Confirmed by: Javan Hand 27-Nov-2016 10:46:58
--- NOTE | 2016-11-27 13:50 | OPERATIVE REPORT E ---
Operative Report NAME: ROCK GERALD : 1955 AGE: 61Y DATE OF SURGERY: 11/27/2016 ROOM: PREOPERATIVE DIAGNOSIS: Emergency consultation called for Emergency Room for placement of a chest tube draining of pneumothorax. The patient has a history of sarcoma, bilateral lung metastases, with recurrent pneumothoraces. came to the Emergency Room with shortness of breath. A chest x-ray showed a small pneumothorax in the medial aspect of the lung, very close to the aortic knob, and the left side with a small pocket. It may be loculated. It has been there for a long time. No other pneumothorax pocket on the right side in the base. Since patient has very difficulty in breathing, it may be pneumothorax maybe trying to expand. He will need to have chest tube placement while he is getting transferred to tertiary care. OPERATION: Placement of right side #10 chest tube into the base of the lung area pleural cavity on the right side. Procedure done at the bedside. SURGEON: MARK MINOR M.D. ANESTHESIA: 1% lidocaine PROCEDURE: After informed consent was obtained, the right-sided chest area was cleaned _ sterile field. After infiltrating with 1% lidocaine, around the 7th intercostal space, about a 2 mm #10 sized chest tube was placed after introducing through with a dilator. Once pleural cavity, which was confirmed by passed the tube into the thoracic cavity without any resistance. 5-6 cm of the tube was placed into the pleural cavity. After that, it was connected to tube was nicely secured to the skin with 2-0 silk sutures. After that, . The patient was stable throughout the procedure. Continued to saturate around 94%. He is being transferred to tertiary care. DICTATING PHYSICIAN: MARK MINOR M.D. [id number] PHY#: [id number] ID: [id number] JOB#: [id number] ACCT: [id number] cc:MARK MINOR M.D. > MTDD
== END 2016-11-27 09:30 | disposition short-term general hospital (02) ==
LOC: ER 02:13
PROC: 0W9900Z Drainage of Right Pleural Cavity with Drainage Device, Open Approach (ICD-10-PCS; principal; 2016-11-27)
DX: J93.9 Pneumothorax, unspecified (principal); D64.9 Anemia, unspecified; R09.02 Hypoxemia; R06.02 Shortness of breath; C78.00 Secondary malignant neoplasm of unspecified lung; F17.200 Nicotine dependence, unspecified, uncomplicated; Z86.718 Personal history of other venous thrombosis and embolism; Z86.711 Personal history of pulmonary embolism; Z79.02 Long term (current) use of antithrombotics/antiplatelets; Z99.81 Dependence on supplemental oxygen; Z85.830 Personal history of malignant neoplasm of bone
CPT/HCPCS: 32551; 93005; 94640; 99291; 96361; 96365; 96366; 96368; 86900; 86901; 36415; 87040; 36430; 86850; 82803; 82550; 85025; 85610; 85730; 80048; 84484; 86920; 83605; 83880; 71010; 93010; 94660; P9016; J3490 ×2; J7030; J3370; J7620; J2543

== ENCOUNTER → 2016-12-18 | Outpatient (CLI) | payer BC | LOC: RAD 12:14 | PROVIDERS: ATTEND Thoracic Surgery (Cardiothoracic Vascular Surgery) | DX: J93.9 Pneumothorax, unspecified (principal) | CPT/HCPCS: 71020 ==